=== PATIENT | male | born 1950 | race Caucasian/White ===

== ENCOUNTER 2016-11-23 20:29 | Inpatient (IN) | payer MEDICARE, OTHER ==
--- NOTE | 2016-11-23 21:52 | EDM.PDOC ---
ED HPI GENERAL MEDICAL PROBLEM - General Chief Complaint: General Stated Complaint: WEAKNESS Time Seen by Provider: 11/23/16 21:29 Source of Information: Reports: Patient History Limitations: Reports: No Limitations - History of Present Illness INITIAL COMMENTS - FREE TEXT/NARRATIVE: 66 years old male patient presented with chief complaint of generalized weakness , dizziness has been going on for almost one week. [facility] and [facility]. The patient was also prescribed trazodone for probable sleeping. Monday he had diarrhea and was not feeling well so he stopped using both Augmentin and trazodone. Monday he had 2 syncopal episode. He was walking to the bathroom and felt lightheaded and fainted twice. He hit his head. Complete loss of consciousness. He didn't seek any medical attention at that time. Denies any chest pain or shortness of breath at that time. No seizure activities. No focal weakness or numbness. Since then he has been progressively getting weaker and more dizzy. On Monday he had a moment of 8 and iron studies was ordered. Also fecal blood test. Results not back. He had a hemoglobin of 8 at that time. Patient was started on iron. Denies any chest pain or shortness breath. Denies any palpitation. No abdominal pain diarrhea or constipation. No urinary symptom. Denies any focal weakness or numbness anywhere. Denies any blood and urine or stool. No black stool. Denies any fever or chills. - Related Data Allergies Allergy/AdvReac Type Severity Reaction Status Date / Time hydrochlorothiazide Allergy Fluid Verified 11/23/16 21:52 Retention nifedipine [From Procardia] Allergy Swelling Verified 11/23/16 21:52 Home Meds: Home Meds Amoxicillin/Clavulanate K [Augmentin 875-125 MG] 1 tab PO Q12H 11/23/16 [History ] Atenolol 100 mg PO DAILY 11/23/16 [History] Chlorthalidone 50 mg PO DAILY 11/23/16 [History] Ferrous Gluconate 1 tab PO BID 11/23/16 [History] Gabapentin [Neurontin] 200 mg PO BEDTIME 11/23/16 [History] Lisinopril 40 mg PO DAILY 11/23/16 [History] atorvaSTATin [Lipitor] 40 mg PO DAILY 11/23/16 [History] traZODone 50 mg PO BEDTIME PRN 11/23/16 [History] Past Medical History HEENT History: Reports: Other (See Below) Other HEENT History: dental infection recent Cardiovascular History: Reports: High Cholesterol, Hypertension Gastrointestinal History: Reports: PUD Musculoskeletal History: Reports: Back Pain, Chronic, Osteoarthritis, Other ( See Below) Other Musculoskeletal History: degenerative disc disease. twitchy legs at night Other Psychiatric History: no been sleeping well for 1 wk Other Hematologic History: hgb 8.4 Social & Family History - Tobacco Use Smoking Status *Q: Current Every Day Smoker Years of Tobacco use: 50 Packs/Tins Daily: 1 - Recreational Drug Use Recreational Drug Use: Yes ED ROS GENERAL - Review of Systems Review Of Systems: ROS reveals no pertinent complaints other than HPI. ED EXAM, GENERAL - Physical Exam Exam: See Below Exam Limited By: No Limitations General Appearance: Alert, WD/WN, No Apparent Distress Nose: Normal Inspection, Normal Mucosa, No Blood Throat/Mouth: Normal Inspection, Normal Lips, Normal Teeth, Normal Gums, Normal Oropharynx, Normal Voice, No Airway Compromise Head: Atraumatic, Normocephalic Neck: Normal Inspection, Supple, Non-Tender, Full Range of Motion Respiratory/Chest: No Respiratory Distress, Lungs Clear, Normal Breath Sounds, No Accessory Muscle Use, Chest Non-Tender Cardiovascular: Normal Peripheral Pulses, Regular Rate, Rhythm, No Edema, No Gallop, No JVD, No Murmur, No Rub GI/Abdominal: Normal Bowel Sounds, Soft, Non-Tender, No Organomegaly, No Distention, No Abnormal Bruit, No Mass Extremities: Normal Inspection, Normal Range of Motion, Non-Tender, Normal Capillary Refill, No Pedal Edema Neurological: Alert, Oriented, CN II-XII Intact, Normal Cognition, Normal Gait, Normal Reflexes, No Motor/Sensory Deficits Skin Exam: Pallor. No: No Rash, Cyanosis, Erythema Course - Vital Signs Last Recorded V/S: Last Vital Signs Temp 36.2 C 11/24/16 07:28 Pulse 76 11/24/16 07:28 Resp 16 11/24/16 07:28 BP 114/56 L 11/24/16 07:28 Pulse Ox 96 11/24/16 07:28 - Orders/Labs/Meds Orders: Active Orders 24 hr Category Date Time Status Head wo Cont [CT] Urgent Exams 11/23/16 22:08 Taken PATIENT RETYPE [BBK] Stat Lab 11/23/16 22:40 Results RED BLOOD CELLS LP [BBK] Stat Lab 11/23/16 22:40 Results TYPE AND SCREEN [BBK] Stat Lab 11/23/16 22:40 Results Transfuse Red Blood Cells [COMM] Stat Oth 11/23/16 23:39 Ordered EKG 12 Lead [EK] Urgent Ther 11/23/16 22:08 Ordered Medication Orders Acetaminophen (Tylenol) 650 mg PO Q4H PRN PRN Reason: Pain (Mild 1-3)/fever Albuterol (Proventil Neb Soln) 2.5 mg NEB Q4H PRN PRN Reason: Shortness Of Breath/wheezing Gabapentin (Neurontin) 200 mg PO BEDTIME DONAL Sodium Chloride (Normal Saline) 1,000 mls @ 125 mls/hr IV ASDIRECTED DONAL Pantoprazole Sodium 80 mg/ (Sodium Chloride) 100 mls @ 10 mls/hr IV .Q10H DONAL Lorazepam (Ativan) 0.5 - 1 mg IVPUSH Q4H PRN PRN Reason: Nausea/Vomiting Morphine Sulfate (Morphine) 2 - 4 mg IVPUSH Q2H PRN PRN Reason: Pain (severe 7-10) Ondansetron HCl (Zofran Odt) 4 mg PO Q6H PRN PRN Reason: Nausea able to take PO Ondansetron HCl (Zofran) 4 mg IV Q6H PRN PRN Reason: Nausea/Vomiting Trazodone HCl (Trazodone) 50 mg PO BEDTIME PRN PRN Reason: Insomnia Last Admin: 11/24/16 02:19 Dose: 50 mg Labs: Laboratory Tests 11/23/16 11/23/16 11/23/16 Range/Units 00:01 00:01 22:28 WBC 17.6 H (4.5-11.0) K/uL RBC 1.56 L (4.30-5.90) M/uL Hgb 5.0 L* (12.0-15.0) g/dL Hct 15.0 L (40.0-54.0) % MCV 96 (80-98) fL MCH 32 H (27-31) pg MCHC 33 (32-36) % Plt Count 486 H (150-400) K/uL Neut % (Auto) 55 (36-66) % Lymph % (Auto) 31 (24-44) % Dyer % (Auto) 9 H (2-6) % Eos % (Auto) 5 H (2-4) % Baso % (Auto) 1 (0-1) % PT (9.5-12.0) sec INR (0.80-1.20) Sodium (140-148) mmol/L Potassium (3.6-5.2) mmol/L Chloride (100-108) mmol/L Carbon Dioxide (21-32) mmol/L Anion Gap (5.0-14.0) mmol/L BUN (7-18) mg/dL Creatinine (0.8-1.3) mg/dL Est Cr Clr Drug Dosing mL/min Estimated GFR (MDRD) (>60) Glucose (74-106) mg/dL Lactic Acid (0.4-2.0) mmol/L Calcium (8.5-10.1) mg/dL Phosphorus (2.5-4.9) mg/dL Magnesium (1.8-2.4) mg/dL Iron 123 (65-175) ug/dL TIBC 459 H (250-450) ug/dl % Saturation 27 (20-55) % Ferritin 21 (8-388) ng/ml Total Bilirubin (0.2-1.0) mg/dL AST (15-37) U/L ALT (12-78) U/L Alkaline Phosphatase (46-116) U/L Ammonia (11-32) mmol/L Lactate Dehydrogenase 75 L (85-227) U/L Troponin I (0.000-0.056) ng/mL Total Protein (6.4-8.2) g/dL Albumin (3.4-5.0) g/dL Globulin (2.3-3.5) g/dL Albumin/Globulin Ratio (1.2-2.2) Lipase (73-393) U/L TSH, Ultra Sensitive (0.358-3.740) uIU/mL Blood Type Gel Antibody Screen Crossmatch 11/23/16 11/23/16 11/23/16 Range/Units 22:28 22:28 22:28 WBC (4.5-11.0) K/uL RBC (4.30-5.90) M/uL Hgb (12.0-15.0) g/dL Hct (40.0-54.0) % MCV (80-98) fL MCH (27-31) pg MCHC (32-36) % Plt Count (150-400) K/uL Neut % (Auto) (36-66) % Lymph % (Auto) (24-44) % Dyer % (Auto) (2-6) % Eos % (Auto) (2-4) % Baso % (Auto) (0-1) % PT 9.9 (9.5-12.0) sec INR 0.93 (0.80-1.20) Sodium 134 L (140-148) mmol/L Potassium 3.5 L (3.6-5.2) mmol/L Chloride 96 L (100-108) mmol/L Carbon Dioxide 28 (21-32) mmol/L Anion Gap 13.5 (5.0-14.0) mmol/L BUN 44 H (7-18) mg/dL Creatinine 0.9 (0.8-1.3) mg/dL Est Cr Clr Drug Dosing 68.77 mL/min Estimated GFR (MDRD) > 60 (>60) Glucose 115 H (74-106) mg/dL Lactic Acid (0.4-2.0) mmol/L Calcium 8.5 (8.5-10.1) mg/dL Phosphorus 3.9 (2.5-4.9) mg/dL Magnesium 1.8 (1.8-2.4) mg/dL Iron (65-175) ug/dL TIBC (250-450) ug/dl % Saturation (20-55) % Ferritin (8-388) ng/ml Total Bilirubin 0.2 (0.2-1.0) mg/dL AST 32 (15-37) U/L ALT 41 (12-78) U/L Alkaline Phosphatase 44 L (46-116) U/L Ammonia 16 (11-32) mmol/L Lactate Dehydrogenase (85-227) U/L Troponin I < 0.017 (0.000-0.056) ng/mL Total Protein 6.3 L (6.4-8.2) g/dL Albumin 2.9 L (3.4-5.0) g/dL Globulin 3.4 (2.3-3.5) g/dL Albumin/Globulin Ratio 0.9 L (1.2-2.2) Lipase 207 (73-393) U/L TSH, Ultra Sensitive 4.525 H (0.358-3.740) uIU/mL Blood Type Gel Antibody Screen Crossmatch 11/23/16 11/23/16 Range/Units 22:28 22:40 WBC (4.5-11.0) K/uL RBC (4.30-5.90) M/uL Hgb (12.0-15.0) g/dL Hct (40.0-54.0) % MCV (80-98) fL MCH (27-31) pg MCHC (32-36) % Plt Count (150-400) K/uL Neut % (Auto) (36-66) % Lymph % (Auto) (24-44) % Dyer % (Auto) (2-6) % Eos % (Auto) (2-4) % Baso % (Auto) (0-1) % PT (9.5-12.0) sec INR (0.80-1.20) Sodium (140-148) mmol/L Potassium (3.6-5.2) mmol/L Chloride (100-108) mmol/L Carbon Dioxide (21-32) mmol/L Anion Gap (5.0-14.0) mmol/L BUN (7-18) mg/dL Creatinine (0.8-1.3) mg/dL Est Cr Clr Drug Dosing mL/min Estimated GFR (MDRD) (>60) Glucose (74-106) mg/dL Lactic Acid 1.3 (0.4-2.0) mmol/L Calcium (8.5-10.1) mg/dL Phosphorus (2.5-4.9) mg/dL Magnesium (1.8-2.4) mg/dL Iron (65-175) ug/dL TIBC (250-450) ug/dl % Saturation (20-55) % Ferritin (8-388) ng/ml Total Bilirubin (0.2-1.0) mg/dL AST (15-37) U/L ALT (12-78) U/L Alkaline Phosphatase (46-116) U/L Ammonia (11-32) mmol/L Lactate Dehydrogenase (85-227) U/L Troponin I (0.000-0.056) ng/mL Total Protein (6.4-8.2) g/dL Albumin (3.4-5.0) g/dL Globulin (2.3-3.5) g/dL Albumin/Globulin Ratio (1.2-2.2) Lipase (73-393) U/L TSH, Ultra Sensitive (0.358-3.740) uIU/mL Blood Type A POSITIVE Gel Antibody Screen Negative Crossmatch See Detail Meds: Medications Generic Name Dose Route Start Last Admin Trade Name Freq PRN Reason Stop Dose Admin Acetaminophen 650 mg 11/24/16 01:04 Tylenol PO Q4H PRN Pain (Mild 1-3)/fever Albuterol 2.5 mg 11/24/16 01:04 Proventil Neb Soln NEB Q4H PRN Shortness Of Breath/wheezing Gabapentin 200 mg 11/24/16 21:00 Neurontin PO BEDTIME DONAL Sodium Chloride 1,000 mls @ 125 mls/hr 11/24/16 01:04 Normal Saline IV ASDIRECTED DONAL Pantoprazole Sodium 80 mg/ 100 mls @ 10 mls/hr 11/24/16 08:30 Sodium Chloride IV .Q10H DONAL Lorazepam 0.5 - 1 mg 11/24/16 01:04 Ativan IVPUSH Q4H PRN Nausea/Vomiting Morphine Sulfate 2 - 4 mg 11/24/16 01:04 Morphine IVPUSH Q2H PRN Pain (severe 7-10) Ondansetron HCl 4 mg 11/24/16 01:04 Zofran Odt PO Q6H PRN Nausea able to take PO Ondansetron HCl 4 mg 11/24/16 01:04 Zofran IV Q6H PRN Nausea/Vomiting Trazodone HCl 50 mg 11/24/16 01:04 11/24/16 02:19 Trazodone PO 50 mg BEDTIME PRN Administration Insomnia Discontinued Medications Generic Name Dose Route Start Last Admin Trade Name Freq PRN Reason Stop Dose Admin Sodium Chloride 1,000 mls @ 125 mls/hr 11/23/16 22:15 11/23/16 22:26 Normal Saline IV 125 mls/hr ASDIRECTED DONAL Administration Pantoprazole Sodium 80 mg/ 100 mls @ 10 mls/hr 11/24/16 01:04 11/24/16 05:32 Sodium Chloride IV Not Given .Q10H DONAL Pantoprazole Sodium 80 mg/ 80 mls @ 10 mls/hr 11/24/16 01:30 11/24/16 04:04 Sodium Chloride IV 10 mls/hr Q8H DONAL Administration Pantoprazole Sodium 40 mg 11/24/16 01:04 11/24/16 02:19 Protonix Iv IVPUSH 11/24/16 01:05 40 mg ONETIME ONE Administration Pantoprazole Sodium Confirm 11/24/16 03:49 11/24/16 04:03 Protonix Iv Administered 11/24/16 03:50 Not Given Dose 80 mg .ROUTE .[facility] ONE - Re-Assessments/Exams Free Text/Narrative Re-Assessment/Exam: 11/24/16 07:33 Patient was seen and examined shortly after arrival. On monitoring analyst. EKG shows no sign of acute ischemia or arrhythmia. CT head shows no acute finding. Lab and imaging reviewed with the patient. Hemoglobin open came back 5. Patient was typed and crossmatched for 2 units of blood. Started the first unit here in the ER. Patient initially denies any black tarry stool and when he was asked again he suggests sometime. So most likely he have some sort of upper GI bleed. Case was discussed with Dr. Escalante hospitalist bacon stringer and he accepts the admission for further management. Patient agrees with the plan. Stable for admission. Departure - Departure Time of Disposition: 01:00 Disposition: Refer to Observation Condition: Good Clinical Impression: GI bleeding, Acute blood loss anemia, Acute upper gastrointestinal hemorrhage - Discharge Information - My Orders Last 24 Hours: My Active Orders 11/23/16 22:08 Head wo Cont [CT] Urgent EKG 12 Lead [EK] Urgent 11/23/16 22:40 PATIENT RETYPE [BBK] Stat RED BLOOD CELLS LP [BBK] Stat TYPE AND SCREEN [BBK] Stat 11/23/16 23:39 Transfuse Red Blood Cells [COMM] Stat - Assessment/Plan Last 24 Hours: My Active Orders 11/23/16 22:08 Head wo Cont [CT] Urgent EKG 12 Lead [EK] Urgent 11/23/16 22:40 PATIENT RETYPE [BBK] Stat RED BLOOD CELLS LP [BBK] Stat TYPE AND SCREEN [BBK] Stat 11/23/16 23:39 Transfuse Red Blood Cells [COMM] Stat Plan: The patient was typed and crossmatched . Started on blood transfusion. Patient will be admitted to Dr. Escalante hospitalist bacon stringer for further management.
[2016-11-23] MEDS ORDERED: Sodium Chloride 0.9% 1,000 ML IV SCH (22:15)
--- NOTE | 2016-11-24 00:35 | PCM.HP ---
H&P History of Present Illness - General Date of Service: 11/24/16 Admit Problem/Dx: Admission Diagnosis/Problem Admission Diagnosis/Problem Acute gastrointestinal hemorrhage Source of Information: Patient, Family, Provider History Limitations: Reports: No Limitations - History of Present Illness Initial Comments - Free Text/Narative: Joey presents to the emergency room today with weakness and fatigue. He reports 2 days of fairly impressive diarrhea with dark stool towards the end of last week, about 5 days. Over the weekend he had 2 episodes of syncope and one episode resulted him striking his head on the floor. He has had some mild residual dizziness and lightheadedness. No ongoing difficulty with abdominal pain or diarrhea like he experienced approximately 5 days ago. He has been more tired than usual and short of breath, especially with exertion. He's had some mild burning epigastric and lower chest discomfort over the past few days. Pain seems to be worse in the evening after he takes this restless leg medication. He hasn't taken anything to make it feel better. He has maintained liquids fairly well but hasn't had much food over the past couple of days. He does report some ongoing loose stools which appear to be black but he blames this on drinking coffee. Mild nausea but no vomiting. He has not had any sick contacts. He has not traveled. No fevers or chills. Workup in the emergency room revealed a hemoglobin of 5 and an elevated white blood cell count at 17,000. He is receiving his first unit of blood here and will be admitted to the intensive care unit for further management of a presumed upper gastrointestinal tract hemorrhage. - Related Data Allergies/Adverse Reactions: Allergies Allergy/AdvReac Type Severity Reaction Status Date / Time hydrochlorothiazide Allergy Fluid Verified 11/23/16 21:52 Retention nifedipine [From Procardia] Allergy Swelling Verified 11/23/16 21:52 Home Medications: Home Meds Amoxicillin/Clavulanate K [Augmentin 875-125 MG] 1 tab PO Q12H 11/23/16 [History ] Atenolol 100 mg PO DAILY 11/23/16 [History] Chlorthalidone 50 mg PO DAILY 11/23/16 [History] Ferrous Gluconate 1 tab PO BID 11/23/16 [History] Gabapentin [Neurontin] 200 mg PO BEDTIME 11/23/16 [History] Lisinopril 40 mg PO DAILY 11/23/16 [History] atorvaSTATin [Lipitor] 40 mg PO DAILY 11/23/16 [History] traZODone 50 mg PO BEDTIME PRN 11/23/16 [History] Past Medical History HEENT History: Reports: Other (See Below) Other HEENT History: dental infection recent Cardiovascular History: Reports: High Cholesterol, Hypertension Gastrointestinal History: Reports: PUD Musculoskeletal History: Reports: Back Pain, Chronic, Osteoarthritis, Other ( See Below) Other Musculoskeletal History: degenerative disc disease. twitchy legs at night Other Psychiatric History: no been sleeping well for 1 wk Other Hematologic History: hgb 8.4 Social & Family History - Family History Cardiac: Denies: CAD - Tobacco Use Smoking Status *Q: Current Every Day Smoker Years of Tobacco use: 50 Packs/Tins Daily: 1 - Caffeine Use Caffeine Use: Reports: Coffee - Alcohol Use Alcohol Use History: No - Recreational Drug Use Recreational Drug Use: Yes H&P Review of Systems - Review of Systems: Review Of Systems: See Below Free Text/Narrative: A complete 12 point review of systems was obtained. Pertinent positives and negatives are noted in the history of present illness. All other systems were reviewed and were negative except as noted. Exam - Exam Exam: See Below - Vital Signs Vital Signs: Last Vital Signs Temp 35.5 C 11/24/16 00:03 Pulse 73 11/24/16 00:03 Resp 16 11/24/16 00:03 BP 105/59 L 11/24/16 00:03 Pulse Ox 100 11/24/16 00:03 Weight: 59.421 kg - Exam Quality Assessment: No: Supplemental Oxygen General: Alert, Oriented, Cooperative. No: Mild Distress HEENT: Conjunctiva Clear. No: Mucosa Moist & [place] (dry), Scleral Icterus Neck: Supple, Trachea Midline. No: Lymphadenopathy Lungs: Clear to Auscultation, Normal Respiratory Effort Cardiovascular: Regular Rate, Regular Rhythm. No: Systolic Murmur GI/Abdominal Exam: Normal Bowel Sounds, Soft, Non-Tender, No Distention, No Mass Back Exam: Normal Inspection, Muscle Spasm Extremities: No Pedal Edema. No: Increased Warmth Peripheral Pulses: 2+: Dorsalis Pedis (L), Dorsalis Pedis (R) Skin: Warm, Dry, Intact Neuro Extensive - Mental Status: Alert, Oriented x3, Nl Response to Commands Neuro Extensive - Motor, Sensory, Reflexes: CN II-XII Intact. No: Dysarthria, Abnormal Motor, Tremor Psychiatric: Alert, Normal Affect - Patient Data Lab Results Last 24 hrs: Laboratory Results - last 24 hr 11/23/16 11/23/16 11/23/16 Range/Units 00:01 00:01 22:28 WBC 17.6 H (4.5-11.0) K/uL RBC 1.56 L (4.30-5.90) M/uL Hgb 5.0 L* (12.0-15.0) g/dL Hct 15.0 L (40.0-54.0) % MCV 96 (80-98) fL MCH 32 H (27-31) pg MCHC 33 (32-36) % Plt Count 486 H (150-400) K/uL Neut % (Auto) 55 (36-66) % Lymph % (Auto) 31 (24-44) % Wilkes % (Auto) 9 H (2-6) % Eos % (Auto) 5 H (2-4) % Baso % (Auto) 1 (0-1) % PT (9.5-12.0) sec INR (0.80-1.20) Sodium (140-148) mmol/L Potassium (3.6-5.2) mmol/L Chloride (100-108) mmol/L Carbon Dioxide (21-32) mmol/L Anion Gap (5.0-14.0) mmol/L BUN (7-18) mg/dL Creatinine (0.8-1.3) mg/dL Est Cr Clr Drug Dosing mL/min Estimated GFR (MDRD) (>60) Glucose (74-106) mg/dL Lactic Acid (0.4-2.0) mmol/L Calcium (8.5-10.1) mg/dL Phosphorus (2.5-4.9) mg/dL Magnesium (1.8-2.4) mg/dL Iron 123 (65-175) ug/dL TIBC 459 H (250-450) ug/dl % Saturation 27 (20-55) % Ferritin 21 (8-388) ng/ml Total Bilirubin (0.2-1.0) mg/dL AST (15-37) U/L ALT (12-78) U/L Alkaline Phosphatase (46-116) U/L Ammonia (11-32) mmol/L Lactate Dehydrogenase 75 L (85-227) U/L Troponin I (0.000-0.056) ng/mL Total Protein (6.4-8.2) g/dL Albumin (3.4-5.0) g/dL Globulin (2.3-3.5) g/dL Albumin/Globulin Ratio (1.2-2.2) Lipase (73-393) U/L TSH, Ultra Sensitive (0.358-3.740) uIU/mL Blood Type Gel Antibody Screen Crossmatch 11/23/16 11/23/16 11/23/16 Range/Units 22:28 22:28 22:28 WBC (4.5-11.0) K/uL RBC (4.30-5.90) M/uL Hgb (12.0-15.0) g/dL Hct (40.0-54.0) % MCV (80-98) fL MCH (27-31) pg MCHC (32-36) % Plt Count (150-400) K/uL Neut % (Auto) (36-66) % Lymph % (Auto) (24-44) % Wilkes % (Auto) (2-6) % Eos % (Auto) (2-4) % Baso % (Auto) (0-1) % PT 9.9 (9.5-12.0) sec INR 0.93 (0.80-1.20) Sodium 134 L (140-148) mmol/L Potassium 3.5 L (3.6-5.2) mmol/L Chloride 96 L (100-108) mmol/L Carbon Dioxide 28 (21-32) mmol/L Anion Gap 13.5 (5.0-14.0) mmol/L BUN 44 H (7-18) mg/dL Creatinine 0.9 (0.8-1.3) mg/dL Est Cr Clr Drug Dosing 68.77 mL/min Estimated GFR (MDRD) > 60 (>60) Glucose 115 H (74-106) mg/dL Lactic Acid (0.4-2.0) mmol/L Calcium 8.5 (8.5-10.1) mg/dL Phosphorus 3.9 (2.5-4.9) mg/dL Magnesium 1.8 (1.8-2.4) mg/dL Iron (65-175) ug/dL TIBC (250-450) ug/dl % Saturation (20-55) % Ferritin (8-388) ng/ml Total Bilirubin 0.2 (0.2-1.0) mg/dL AST 32 (15-37) U/L ALT 41 (12-78) U/L Alkaline Phosphatase 44 L (46-116) U/L Ammonia 16 (11-32) mmol/L Lactate Dehydrogenase (85-227) U/L Troponin I < 0.017 (0.000-0.056) ng/mL Total Protein 6.3 L (6.4-8.2) g/dL Albumin 2.9 L (3.4-5.0) g/dL Globulin 3.4 (2.3-3.5) g/dL Albumin/Globulin Ratio 0.9 L (1.2-2.2) Lipase 207 (73-393) U/L TSH, Ultra Sensitive 4.525 H (0.358-3.740) uIU/mL Blood Type Gel Antibody Screen Crossmatch 11/23/16 11/23/16 Range/Units 22:28 22:40 WBC (4.5-11.0) K/uL RBC (4.30-5.90) M/uL Hgb (12.0-15.0) g/dL Hct (40.0-54.0) % MCV (80-98) fL MCH (27-31) pg MCHC (32-36) % Plt Count (150-400) K/uL Neut % (Auto) (36-66) % Lymph % (Auto) (24-44) % Wilkes % (Auto) (2-6) % Eos % (Auto) (2-4) % Baso % (Auto) (0-1) % PT (9.5-12.0) sec INR (0.80-1.20) Sodium (140-148) mmol/L Potassium (3.6-5.2) mmol/L Chloride (100-108) mmol/L Carbon Dioxide (21-32) mmol/L Anion Gap (5.0-14.0) mmol/L BUN (7-18) mg/dL Creatinine (0.8-1.3) mg/dL Est Cr Clr Drug Dosing mL/min Estimated GFR (MDRD) (>60) Glucose (74-106) mg/dL Lactic Acid 1.3 (0.4-2.0) mmol/L Calcium (8.5-10.1) mg/dL Phosphorus (2.5-4.9) mg/dL Magnesium (1.8-2.4) mg/dL Iron (65-175) ug/dL TIBC (250-450) ug/dl % Saturation (20-55) % Ferritin (8-388) ng/ml Total Bilirubin (0.2-1.0) mg/dL AST (15-37) U/L ALT (12-78) U/L Alkaline Phosphatase (46-116) U/L Ammonia (11-32) mmol/L Lactate Dehydrogenase (85-227) U/L Troponin I (0.000-0.056) ng/mL Total Protein (6.4-8.2) g/dL Albumin (3.4-5.0) g/dL Globulin (2.3-3.5) g/dL Albumin/Globulin Ratio (1.2-2.2) Lipase (73-393) U/L TSH, Ultra Sensitive (0.358-3.740) uIU/mL Blood Type A POSITIVE Gel Antibody Screen Negative Crossmatch See Detail Result Diagrams: 11/23/16 22:28 11/23/16 22:28 Imaging Impressions Last 24 hrs: Head CT - images personally reviewed - no evidence for acute pathology such as hemorrhage stroke or mass *Q Meaningful Use (ADM) - VTE *Q VTE Criteria *Q: VTE Pharmacological Contraindications *Q: Active Hemorrhage - VTE Risk Assess *Q Each Risk Factor Represents 1 Point: Abnormal Pulmonary Function (COPD) Total Score 1 Point Risk Factors: 1 Each Risk Factor Represents 2 Points: Age 60 - 74 Years Total Score 2 Point Risk Factors: 2 Each Risk Factor Represents 3 Points: None Total Score 3 Point Risk Factors: 0 Each Risk Factor Represents 5 Points: None Total Score 5 Point Risk Factors: 0 Venous Thromboembolism Risk Factor Score *Q: 3 - Stroke *Q Stroke Criteria *Q: - AMI *Q AMI Criteria *Q: - Problem List (1) Acute upper gastrointestinal hemorrhage SNOMED Code(s): 53249034 ICD Code: K92.2 - GASTROINTESTINAL HEMORRHAGE, UNSPECIFIED Status: Acute Current Visit: Yes (2) Acute blood loss anemia SNOMED Code(s): 709933435 ICD Code: D62 - ACUTE POSTHEMORRHAGIC ANEMIA Status: Acute Current Visit : Yes (3) Tobacco dependence SNOMED Code(s): 19628117 ICD Code: F17.200 - NICOTINE DEPENDENCE, UNSPECIFIED, UNCOMPLICATED Status : Chronic Current Visit: Yes (4) Essential hypertension SNOMED Code(s): 62700507 ICD Code: I10 - ESSENTIAL (PRIMARY) HYPERTENSION Status: Chronic Current Visit: Yes Problem List Initiated/Reviewed/Updated: Yes Orders Last 24hrs: Active Orders 24 hr Category Date Time Status Patient Status Manage Transfer [TRANSFER] Routine ADT 11/24/16 00:21 Ordered EKG Documentation Completion [RC] ASDIRECTED Care 11/23/16 22:11 Active Head wo Cont [CT] Urgent Exams 11/23/16 22:08 Taken PATIENT RETYPE [BBK] Stat Lab 11/23/16 22:40 Results RED BLOOD CELLS LP [BBK] Stat Lab 11/23/16 22:40 Results TYPE AND SCREEN [BBK] Stat Lab 11/23/16 22:40 Results Sodium Chloride 0.9% [Normal Saline] 1,000 ml Med 11/23/16 22:15 Active IV ASDIRECTED Transfuse Red Blood Cells [COMM] Stat Oth 11/23/16 23:39 Ordered Resuscitation Status Routine Resus Stat 11/24/16 00:22 Ordered EKG 12 Lead [EK] Urgent Ther 11/23/16 22:08 Ordered Medication Orders Sodium Chloride (Normal Saline) 1,000 mls @ 125 mls/hr IV ASDIRECTED DONAL Last Admin: 11/23/16 22:26 Dose: 125 mls/hr Assessment/Plan Comment:: Assessment and plan - Acute upper gastrointestinal hemorrhage - most likely source of bleeding with some heartburn symptoms and history of bleeding ulcers. He has borderline hypotensive but not tachycardic. Risk factors for ulcer include caffeine use, cigarette smoking. He is receiving his first unit of blood in the emergency room. Hemoglobin was 5 on presentation today and 8 five days ago. -Admit to the intensive care unit -Cardiac monitoring -IV fluids -Transfuse second and third unit of blood -Pantoprazole bolus and infusion overnight -Repeat hemoglobin in the morning after transfusion -Surgical consult in the morning for EGD Acute blood loss anemia - secondary to hemorrhage as above. Hemoglobin 5 at presentation. -Management as above. Essential hypertension - blood pressure on the low side and usual medications will be held. Tobacco dependence - encourage cessation Maintenance issues - - DVT prophylaxis - mechanical with active hemorrhage - GI prophylaxis - IV PPI - Nutrition - nothing by mouth - Parish catheter - not indicated CODE STATUS - full code Admission justification - This patient will be admitted for inpatient services and is medically appropriate meeting medical necessity for inpatient admission as outlined in my documentation. I reasonably expect the patient will require inpatient services that span a period time over 2 midnights. I reasonably expect this patient to be discharged or transferred within 96 hours [facility] Disposition - anticipate discharge to home after the hospital stay Primary care physician - [place] [facility] Hamilton Escalante M.D.
[2016-11-24] MEDS ORDERED: Acetaminophen 325 MG Tab PO PRN (01:04)
[2016-11-24] MEDS ORDERED: Sodium Chloride 0.9% 100 ML with Pantoprazole 80 MG IV SCH ×2 (01:04)
[2016-11-24] MEDS ORDERED: Ondansetron 4 MG Tab.DIS PO PRN (01:04)
[2016-11-24] MEDS ORDERED: Albuterol 0.083% 2.5 MG/3 ML Neb Soln NEB PRN (01:04)
[2016-11-24] MEDS ORDERED: Pantoprazole 40 MG Vial IVPUSH ONE (01:04)
[2016-11-24] MEDS ORDERED: Morphine 2 MG/ML Syringe IVPUSH PRN (01:04)
[2016-11-24] MEDS ORDERED: LORazepam 2 MG/ML MDV IVPUSH PRN (01:04)
[2016-11-24] MEDS ORDERED: Sodium Chloride 0.9% 1,000 ML IV SCH (01:04)
[2016-11-24] MEDS ORDERED: Ondansetron 4 MG/2 ML SDV IV PRN (01:04)
[2016-11-24] MEDS: traZODone 50 MG Tab PO PRN ×2 (02:19→20:40)
[2016-11-24] MEDS ORDERED: Pantoprazole 40 MG Vial ONE (03:49)
[2016-11-24] MEDS: Sodium Chloride 0.9% 100 ML with Pantoprazole 80 MG IV SCH ×4 (08:36→18:03)
[2016-11-24] MEDS ORDERED: Glycopyrrolate 0.2 MG/ML 2 ML SDV IVPUSH ONE (09:00)
[2016-11-24] MEDS ORDERED: fentaNYL 100 MCG/2 ML SDV ONE (10:10)
[2016-11-24] MEDS ORDERED: Propofol 200 MG/20 ML SDV ONE (10:10)
--- NOTE | 2016-11-24 10:36 | CONS ---
DATE OF SERVICE: 11/24/2016 REFERRING PHYSICIAN: CONSULTING PHYSICIAN: Regina Cabrera PA-C HISTORY OF PRESENT ILLNESS: Joey Stock is a 66-year-old male, who Hamilton Escalante M.D. asked the Surgery Department to seen in consultation. He was admitted on 11/24/2016 for an acute GI bleed. Joey states that he went to the emergency room with a 2-day history of weakness, fatigue, dizziness, and had 2 episodes where he had passed out, on one episode he did hit his head on the floor. He states he is still feeling dizzy and lightheaded. He did have a history of 5 days of black stools, which he associated with drinking coffee and grape Gatorade. With review of history, he states that he has burning in the midepigastric area and some associated chest pain which radiates from the midepigastric area up into his chest, some nausea, but no other associated signs and symptoms. Hemoglobin was checked in the ER and it was 5, elevated white count was 17,000. REVIEW OF SYSTEMS: CONSTITUTIONAL: Denies any fever, chills, or night sweats. Weight, he says goes up and down, but that is pretty stable for him. HEENT: Negative with the exception of poor teeth; states he recently had an infection. HEART: No fast irregular heart beat. LUNGS: No shortness of breath. States he does have a smoker's cough, but that has not changed. : Negative for any UTI or prostate signs and symptoms. MUSCULOSKELETAL: Chronic back pain. He does have osteoarthritis and degenerative disk disease. NEUROLOGIC: Reports slight headache since he has fallen. Reports at night he is unable to keep his legs still without moving, he said they twitch almost all night long. PSYCHIATRIC: Reports insomnia over the past week. Otherwise, denies any depression or anxiety. Remainder of review of systems negative for any pertinent positives and negatives. ALLERGIES: TO HYDROCHLOROTHIAZIDE AND PROCARDIA. CURRENT MEDICATIONS: Include Augmentin 875 mg 1 tablet p.o. for infection in his teeth, atenolol 100 mg p.o. daily, chlorthalidone 50 mg p.o. daily, ferrous gluconate 1 tablet p.o. b.i.d., gabapentin 200 mg p.o. at bedtime, lisinopril 40 mg p.o. daily, Lipitor 40 mg p.o. daily, and trazodone 50 mg p.o. at bedtime p.r.n. for sleep. PRIMARY CARE PROVIDERS: At the [facility]. PAST MEDICAL HISTORY: Hypercholesterolemia, hypertension, pyloric ulcer disease, chronic back pain, osteoarthritis, and degenerative disk disease. FAMILY HISTORY: Denies any heart disease, lung disease, colon or prostate cancer. SOCIAL HISTORY: . Retired. Smoking history: Smokes 1/2 pack of cigarettes daily for 50 years. Caffeine: Reports 1 to 1-1/2 cups of coffee a day. Alcohol use: States varies, but on average 6 beers daily and more if there is a football game on. PHYSICAL EXAMINATION: GENERAL: Joey Stock is a 66-year-old male. He is resting comfortably in bed. VITAL SIGNS: TPR is 97.2, 76, 16. Blood pressure 114/56. HEENT: Negative. Teeth in poor condition. NECK: Supple. Negative for lymphadenopathy. HEART: Regular rate and rhythm. LUNGS: Clear. ABDOMEN: Midepigastric tenderness is noted. : Deferred. EXTREMITIES: Deep tendon reflexes are 2+ bilaterally. He moves all extremities without difficulty. SKIN: Without rash. PSYCHIATRIC: Mood and affect and memory intact. ASSESSMENT: 1. Acute upper gastrointestinal bleed. 2. Acute blood loss anemia. 3. Tobacco dependence. 4. Essential hypertension. 5. Hypercholesterolemia. 6. Nicotine addiction. 7. Alcohol daily use. 8. Osteoarthritis. 9. Degenerative disk disease. PLAN: Schedule and have consent signed for EGD with biopsies. IV sedation. Case to follow 11/24/2016. Remain n.p.o. Rodolfo Gale M.D., surgeon. Rx Robinul 0.4 mg IV on-call to OR. Regina Cabrera PA-C /[id number]
[2016-11-24] MEDS ORDERED: Dextrose 5%-Lactated Ringers 1,000 ML IV SCH ×2 (12:30→17:00)
[2016-11-24] MEDS ORDERED: Iopamidol 612 MG/ML 100 ML Bottle IV PRN (13:15)
[2016-11-24] MEDS ORDERED: Sodium Chloride 0.9% 100 ML IV SCH (13:15)
--- NOTE | 2016-11-24 15:38 | CT ---
Abdomen Pelvis w Cont INDICATION: weight loss, epigastric pain TECHNIQUE: CT images of the abdomen and pelvis performed. Coronal reformatted images obtained. IV contrast only. DLP: 470 mGycm COMPARISON: None FINDINGS: Mild linear scarring at the lung bases. Liver, gallbladder, pancreas, and adrenal glands unremarkable. Small spleen. Multiple prominent air-filled loops of small bowel scattered throughout the abdomen. No definite transition point. Appendix not seen with certainty but no secondary CT signs of acute appendicitis. Mild perinephric induration. This may be due to old inflammatory process thou gh correlate clinically for any acute. 17 mm mass arising from the upper pole of the left kidney post eriorly measures 66 Hounsfield units. This may represent a hyperdense cyst though solid mass includin g neoplasm not excluded. Kidneys otherwise unremarkable. No calculi or hydronephrosis. The ureters ar e clear. Urinary bladder shows no evidence of stones or wall thickening. Prostate mildly enlarged. Ab dominal aorta normal caliber. Degenerative disc disease and hypertrophic change in the lumbar spine. IMPRESSION: 1. Multiple prominent air-filled loops of small bowel. Findings may be due to ileus. If symptoms pers ist recommend follow-up exam to exclude small bowel obstruction. 2. Perinephric induration. This may be acute or chronic. Clinical correlation would be helpful. 3. 17 mm mass upper pole left kidney likely hyperdense cyst. Comparison with any prior imaging studie s of be helpful. If none, recommend follow-up left renal ultrasound in 6 months. 4. Other incidental findings, as above.
--- NOTE | 2016-11-24 16:53 | PCM.PN ---
- General Info Date of Service: 11/24/16 Functional Status: Reports: Pain Controlled - Review of Systems General: Reports: Weakness Cardiovascular: Denies: Chest Pain Gastrointestinal: Denies: Melena - Patient Data Vitals - Most Recent: Last Vital Signs Temp 36.4 C 11/24/16 12:08 Pulse 71 11/24/16 16:00 Resp 16 11/24/16 16:00 BP 123/66 11/24/16 16:00 Pulse Ox 96 11/24/16 16:00 Weight - Most Recent: 60.328 kg I&O - Last 24 Hours: Intake & Output 11/24/16 11/24/16 11/24/16 06:59 14:59 22:59 Intake Total 1224 115 Output Total 900 500 Balance 324 -385 Lab Results Last 24 Hours: Laboratory Results - last 24 hr 11/24/16 11/24/16 11/24/16 Range/Units 04:40 09:40 09:40 WBC 13.2 H (4.5-11.0) K/uL RBC 2.71 L (4.30-5.90) M/uL Hgb 8.3 L D (12.0-15.0) g/dL Hct 24.5 L (40.0-54.0) % MCV 90 (80-98) fL MCH 31 (27-31) pg MCHC 34 (32-36) % Plt Count 351 (150-400) K/uL Sodium 138 L (140-148) mmol/L Potassium 3.7 (3.6-5.2) mmol/L Chloride 103 (100-108) mmol/L Carbon Dioxide 27 (21-32) mmol/L Anion Gap 11.7 (5.0-14.0) mmol/L BUN 34 H (7-18) mg/dL Creatinine 0.9 (0.8-1.3) mg/dL Est Cr Clr Drug Dosing 69.82 mL/min Estimated GFR (MDRD) > 60 (>60) Glucose 109 H (74-106) mg/dL Calcium 8.1 L (8.5-10.1) mg/dL Tx Rx Implicated Unit 1 [id number] Unit 1 Component Lprbc Urine Blood Negative Reaction Clerical Check Acceptable Pre-Trans Blood Type A positive Pre-Trans Vis Hemolysis Negative Pre-Trans Icterus Negative Pre-Trans EVANGELINA IgG Negative Post-Trans Blood Type A positive Post-Tx Visible Hemolys Negative Post-Trans Icterus Negative Post-Trans EVANGELINA IgG Negative 11/24/16 Range/Units 16:40 WBC (4.5-11.0) K/uL RBC (4.30-5.90) M/uL Hgb 8.4 L (12.0-15.0) g/dL Hct (40.0-54.0) % MCV (80-98) fL MCH (27-31) pg MCHC (32-36) % Plt Count (150-400) K/uL Sodium (140-148) mmol/L Potassium (3.6-5.2) mmol/L Chloride (100-108) mmol/L Carbon Dioxide (21-32) mmol/L Anion Gap (5.0-14.0) mmol/L BUN (7-18) mg/dL Creatinine (0.8-1.3) mg/dL Est Cr Clr Drug Dosing mL/min Estimated GFR (MDRD) (>60) Glucose (74-106) mg/dL Calcium (8.5-10.1) mg/dL Tx Rx Implicated Unit 1 Unit 1 Component Urine Blood Reaction Clerical Check Pre-Trans Blood Type Pre-Trans Vis Hemolysis Pre-Trans Icterus Pre-Trans EVANGELINA IgG Post-Trans Blood Type Post-Tx Visible Hemolys Post-Trans Icterus Post-Trans EVANGELINA IgG Med Orders - Current: Current Medications Acetaminophen (Tylenol) 650 mg PO Q4H PRN PRN Reason: Pain (Mild 1-3)/fever Albuterol (Proventil Neb Soln) 2.5 mg NEB Q4H PRN PRN Reason: Shortness Of Breath/wheezing Gabapentin (Neurontin) 200 mg PO BEDTIME DONAL Pantoprazole Sodium 80 mg/ (Sodium Chloride) 100 mls @ 10 mls/hr IV .Q10H [facility]AL Stop: 11/24/16 21:00 Last Admin: 11/24/16 08:36 Dose: 10 mls/hr Lorazepam (Ativan) 0.5 - 1 mg IVPUSH Q4H PRN PRN Reason: Nausea/Vomiting Morphine Sulfate (Morphine) 2 - 4 mg IVPUSH Q2H PRN PRN Reason: Pain (severe 7-10) Ondansetron HCl (Zofran Odt) 4 mg PO Q6H PRN PRN Reason: Nausea able to take PO Ondansetron HCl (Zofran) 4 mg IV Q6H PRN PRN Reason: Nausea/Vomiting Trazodone HCl (Trazodone) 50 mg PO BEDTIME PRN PRN Reason: Insomnia Last Admin: 11/24/16 02:19 Dose: 50 mg Discontinued Medications Fentanyl (Sublimaze) Confirm Administered Dose 100 mcg .ROUTE .STK-MED ONE Stop: 11/24/16 10:11 Glycopyrrolate (Glycopyrrolate) 0.4 mg IVPUSH ONETIME ONE Stop: 11/24/16 09:01 Last Admin: 11/24/16 10:05 Dose: 0.4 mg Sodium Chloride (Normal Saline) 1,000 mls @ 125 mls/hr IV ASDIRECTED [facility] Last Admin: 11/23/16 22:26 Dose: 125 mls/hr Pantoprazole Sodium 80 mg/ (Sodium Chloride) 100 mls @ 10 mls/hr IV .Q10H [facility] Last Admin: 11/24/16 05:32 Dose: Not Given Sodium Chloride (Normal Saline) 1,000 mls @ 125 mls/hr IV ASDIRECTED [facility] Last Admin: 11/24/16 09:30 Dose: 125 mls/hr Pantoprazole Sodium 80 mg/ (Sodium Chloride) 80 mls @ 10 mls/hr IV Q8H [facility] Last Admin: 11/24/16 04:04 Dose: 10 mls/hr Dextrose/Lactated Ringer's (Dextrose 5%-Lactated Ringers) 1,000 mls @ 100 [facility]ls[facility] Last Admin: 11/24/16 14:02 Dose: 100 mls/hr Sodium Chloride (Normal Saline) 100 mls @ 3.5 mls/sec IV ASDIRECTED [facility] Stop: 11/24/16 14:00 Last Admin: 11/24/16 13:33 Dose: 3.5 mls/sec Iopamidol (Isovue-300 (61%)) 100 ml IV . DIRECTED PRN PRN Reason: RADIOLOGY EXAM Stop: 11/24/16 14:00 Last Admin: 11/24/16 13:29 Dose: 90 ml Pantoprazole Sodium (Protonix Iv) 40 mg IVPUSH ONETIME ONE Stop: 11/24/16 01:05 Last Admin: 11/24/16 02:19 Dose: 40 mg Pantoprazole Sodium (Protonix Iv) Confirm Administered Dose 80 mg .ROUTE .STK -MED ONE Stop: 11/24/16 03:50 Last Admin: 11/24/16 04:03 Dose: Not Given Propofol (Diprivan 20 Ml) Confirm Administered Dose 200 mg .ROUTE .STK-MED ONE Stop: 11/24/16 10:11 - Exam Quality Assessment: No: Supplemental Oxygen General: Alert, Oriented, Cooperative, No Acute Distress Neck: Supple Lungs: Normal Respiratory Effort Cardiovascular: Regular Rate, Regular Rhythm GI/Abdominal Exam: Soft, No Distention Extremities: No Pedal Edema. No: Increased Warmth Skin: Warm, Dry Psy/Mental Status: Alert, Normal Affect - Problem List & Annotations (1) Acute upper gastrointestinal hemorrhage SNOMED Code(s): 29058055 Code(s): K92.2 - GASTROINTESTINAL HEMORRHAGE, UNSPECIFIED Status: Acute Current Visit: Yes (2) Acute blood loss anemia SNOMED Code(s): 611463374 Code(s): D62 - ACUTE POSTHEMORRHAGIC ANEMIA Status: Acute Current Visit: Yes (3) Tobacco dependence SNOMED Code(s): 41709839 Code(s): F17.200 - NICOTINE DEPENDENCE, UNSPECIFIED, UNCOMPLICATED Status: Chronic Current Visit: Yes (4) Essential hypertension SNOMED Code(s): 46600187 Code(s): I10 - ESSENTIAL (PRIMARY) HYPERTENSION Status: Chronic Current Visit: Yes - Problem List Review Problem List Initiated/Reviewed/Updated: Yes - My Orders Last 24 Hours: My Active Orders 11/24/16 00:22 Resuscitation Status Routine 11/24/16 01:04 Patient Status [ADT] Routine Bedrest Bedside Commode [RC] ASDIRECTED Intake and Output [RC] QSHIFT Notify Provider Vital Signs [RC] ASDIRECTED Oxygen Therapy [RC] PRN RT Aerosol Therapy [RC] ASDIRECTED VTE/DVT Education [RC] Per Unit Routine Vital Signs [RC] Q2HR Acetaminophen [Tylenol] 650 mg PO Q4H PRN Albuterol [Proventil Neb Soln] 2.5 mg NEB Q4H PRN LORazepam [Ativan] 0.5 - 1 mg IVPUSH Q4H PRN Morphine 2 - 4 mg IVPUSH Q2H PRN Ondansetron [Zofran ODT] 4 mg PO Q6H PRN Ondansetron [Zofran] 4 mg IV Q6H PRN Sequential Compression Device [OM.PC] Per Unit Routine Transfuse Red Blood Cells [COMM] Routine VTE Pharmacological Contraindications [AST] Per Unit Routine 11/24/16 04:40 TRANSFUSION REACTION [BBK] Stat 11/24/16 08:30 Sodium Chloride 0.9% [Normal Saline] 100 ml Pantoprazole [ProTONIX IV] 80 mg IV 10 mls/hr 11/24/16 17:00 Dextrose 5%-Lactated Ringers 1,000 ml IV ASDIRECTED 11/24/16 21:00 Pantoprazole [ProTONIX IV] 40 mg IVPUSH Q12H 11/24/16 Breakfast Nothing per Oral Now Diet [DIET] 11/25/16 05:00 BASIC METABOLIC PANEL,BMP [CHEM] Timed CBC W/O DIFF,HEMOGRAM [HEME] Timed (1) - Plan Plan:: Assessment and plan - Acute upper gastrointestinal hemorrhage - 2/2 ulcer in the pyloric channel. There is still a clot on the ulcer suggesting that it had been bleeding recently. Patient responded well to blood transfusion. Blood pressures have been stable in the normal range. -Cardiac monitoring -Maintenance IV fluids -Pantoprazole infusion until 9 PM then every 12 hours bolus dosing -Repeat hemoglobin in the morning -Minimal oral intake with small sips and a few ice chips Acute blood loss anemia - secondary to hemorrhage as above. Hemoglobin 5 at presentation and he required transfusion of 3 units of packed red blood cells. -Management as above. Essential hypertension - blood pressure on the low side and usual medications will remain on hold. Tobacco dependence - strongly encourage cessation Maintenance issues - - DVT prophylaxis - mechanical with active hemorrhage - GI prophylaxis - IV PPI - Nutrition - minimal by mouth intake Disposition - anticipate discharge to home after the hospital stay Primary care physician - [place] system Hamilton Escalante M.D.
[2016-11-24] MEDS: Pantoprazole 40 MG Vial IVPUSH SCH (20:36)
[2016-11-24] MEDS: Gabapentin 100 MG Cap PO SCH (20:36)
[2016-11-25] MEDS: Pantoprazole 40 MG Vial IVPUSH SCH (08:25)
--- NOTE | 2016-11-25 09:10 | PCM.PN ---
- General Info Date of Service: 11/25/16 Functional Status: Reports: Pain Controlled - Review of Systems General: Denies: Weakness Cardiovascular: Denies: Chest Pain Gastrointestinal: Denies: Hematochezia, Melena Systems Review Comment:: No acute events overnight. No complaints of abdominal pain or heartburn. No chest pain. Hemoglobin level has been stable. There has been no melena or hematochezia. Blood pressures have been stable and in the normal range. No fevers or diarrhea. - Patient Data Vitals - Most Recent: Last Vital Signs Temp 35.5 C 11/25/16 07:28 Pulse 77 11/25/16 07:28 Resp 16 11/25/16 07:28 BP 116/59 L 11/25/16 07:28 Pulse Ox 97 11/25/16 07:28 Weight - Most Recent: 60.328 kg I&O - Last 24 Hours: Intake & Output 11/24/16 11/25/16 11/25/16 22:59 06:59 14:59 Intake Total 1365 868 Output Total 1500 600 425 Balance -135 268 -425 Lab Results Last 24 Hours: Laboratory Results - last 24 hr 11/24/16 11/24/16 11/24/16 Range/Units 04:40 09:40 09:40 WBC 13.2 H (4.5-11.0) K/uL RBC 2.71 L (4.30-5.90) M/uL Hgb 8.3 L D (12.0-15.0) g/dL Hct 24.5 L (40.0-54.0) % MCV 90 (80-98) fL MCH 31 (27-31) pg MCHC 34 (32-36) % Plt Count 351 (150-400) K/uL Sodium 138 L (140-148) mmol/L Potassium 3.7 (3.6-5.2) mmol/L Chloride 103 (100-108) mmol/L Carbon Dioxide 27 (21-32) mmol/L Anion Gap 11.7 (5.0-14.0) mmol/L BUN 34 H (7-18) mg/dL Creatinine 0.9 (0.8-1.3) mg/dL Est Cr Clr Drug Dosing 69.82 mL/min Estimated GFR (MDRD) > 60 (>60) Glucose 109 H (74-106) mg/dL Calcium 8.1 L (8.5-10.1) mg/dL Reaction Interpretation Febrile rx 11/24/16 11/25/16 11/25/16 Range/Units 16:40 06:02 06:02 WBC 16.0 H (4.5-11.0) K/uL RBC 2.58 L (4.30-5.90) M/uL Hgb 8.4 L 8.1 L (12.0-15.0) g/dL Hct 23.7 L (40.0-54.0) % MCV 92 (80-98) fL MCH 31 (27-31) pg MCHC 34 (32-36) % Plt Count 379 (150-400) K/uL Sodium 140 (140-148) mmol/L Potassium 3.4 L (3.6-5.2) mmol/L Chloride 104 (100-108) mmol/L Carbon Dioxide 27 (21-32) mmol/L Anion Gap 12.4 (5.0-14.0) mmol/L BUN 16 D (7-18) mg/dL Creatinine 0.8 (0.8-1.3) mg/dL Est Cr Clr Drug Dosing 78.55 mL/min Estimated GFR (MDRD) > 60 (>60) Glucose 108 H (74-106) mg/dL Calcium 8.4 L (8.5-10.1) mg/dL Reaction Interpretation Med Orders - Current: Current Medications Acetaminophen (Tylenol) 650 mg PO Q4H PRN PRN Reason: Pain (Mild 1-3)/fever Albuterol (Proventil Neb Soln) 2.5 mg NEB Q4H PRN PRN Reason: Shortness Of Breath/wheezing Gabapentin (Neurontin) 200 mg PO BEDTIME DONAL Last Admin: 11/24/16 20:36 Dose: 200 mg Potassium Chloride 20 meq/Lidocaine HCl 2 ml/ Sodium Chloride 112 mls @ 56 mls/ hr IV Q2H [facility] Stop: 11/25/16 13:29 Lorazepam (Ativan) 0.5 - 1 mg IVPUSH Q4H PRN PRN Reason: Nausea/Vomiting Morphine Sulfate (Morphine) 2 - 4 mg IVPUSH Q2H PRN PRN Reason: Pain (severe 7-10) Ondansetron HCl (Zofran Odt) 4 mg PO Q6H PRN PRN Reason: Nausea able to take PO Ondansetron HCl (Zofran) 4 mg IV Q6H PRN PRN Reason: Nausea/Vomiting Pantoprazole Sodium (Protonix Iv) 40 mg IVPUSH Q12H [facility] Stop: 11/25/16 11:00 Last Admin: 11/25/16 08:25 Dose: 40 mg Pantoprazole Sodium (Protonix) 40 mg PO BIDAC DONAL Trazodone HCl (Trazodone) 50 mg PO BEDTIME PRN PRN Reason: Insomnia Last Admin: 11/24/16 20:40 Dose: 50 mg Discontinued Medications Fentanyl (Sublimaze) Confirm Administered Dose 100 mcg .ROUTE .STK-MED ONE Stop: 11/24/16 10:11 Glycopyrrolate (Glycopyrrolate) 0.4 mg IVPUSH ONETIME ONE Stop: 11/24/16 09:01 Last Admin: 11/24/16 10:05 Dose: 0.4 mg Sodium Chloride (Normal Saline) 1,000 mls @ 125 [facility]ls[facility] Last Admin: 11/23/16 22:26 Dose: 125 mls/hr Pantoprazole Sodium 80 mg/ (Sodium Chloride) 100 mls @ 10 mls/hr IV .Q10H [facility] Last Admin: 11/24/16 05:32 Dose: Not Given Sodium Chloride (Normal Saline) 1,000 mls @ 125 mls/hr IV [facility] Last Admin: 11/24/16 09:30 Dose: 125 mls/hr Pantoprazole Sodium 80 mg/ (Sodium Chloride) 80 mls @ 10 mls/hr IV Q8H [facility] Last Admin: 11/24/16 04:04 Dose: 10 mls/hr Pantoprazole Sodium 80 mg/ (Sodium Chloride) 100 mls @ 10 mls/hr IV .Q10H [facility] Stop: 11/24/16 21:00 Last Admin: 11/24/16 18:03 Dose: 10 mls/hr Dextrose/Lactated Ringer's (Dextrose 5%-Lactated Ringers) 1,000 mls @ 100 mls/ hr IV [facility] Last Admin: 11/24/16 14:02 Dose: 100 mls/hr Sodium Chloride (Normal Saline) 100 mls @ 3.5 mls/sec IV [facility]ED [facility] Stop: 11/24/16 14:00 Last Admin: 11/24/16 13:33 Dose: 3.5 mls/sec Dextrose/Lactated Ringer's (Dextrose 5%-Lactated Ringers) 1,000 mls @ 75 mls/ hr IV [facility]ED [facility] Last Admin: 11/25/16 00:03 Dose: 75 mls/hr Iopamidol (Isovue-300 (61%)) 100 ml IV . DIRECTED PRN PRN Reason: RADIOLOGY EXAM Stop: 11/24/16 14:00 Last Admin: 11/24/16 13:29 Dose: 90 ml Pantoprazole Sodium (Protonix Iv) 40 mg IVPUSH ONETIME ONE Stop: 11/24/16 01:05 Last Admin: 11/24/16 02:19 Dose: 40 mg Pantoprazole Sodium (Protonix Iv) Confirm Administered Dose 80 mg .ROUTE .STK -MED ONE Stop: 11/24/16 03:50 Last Admin: 11/24/16 04:03 Dose: Not Given Propofol (Diprivan 20 Ml) Confirm Administered Dose 200 mg .ROUTE .STK-MED ONE Stop: 11/24/16 10:11 - Exam Quality Assessment: No: Supplemental Oxygen General: Alert, Oriented, Cooperative, No Acute Distress Neck: Supple Lungs: Normal Respiratory Effort Cardiovascular: Regular Rate, Regular Rhythm GI/Abdominal Exam: Soft, No Distention Extremities: No Pedal Edema. No: Increased Warmth Skin: Warm, Dry Psy/Mental Status: Alert, Normal Affect - Problem List & Annotations (1) Acute upper gastrointestinal hemorrhage SNOMED Code(s): 21262451 Code(s): K92.2 - GASTROINTESTINAL HEMORRHAGE, UNSPECIFIED Status: Acute Current Visit: Yes (2) Acute blood loss anemia SNOMED Code(s): 398748268 Code(s): D62 - ACUTE POSTHEMORRHAGIC ANEMIA Status: Acute Current Visit: Yes (3) Tobacco dependence SNOMED Code(s): 93743779 Code(s): F17.200 - NICOTINE DEPENDENCE, UNSPECIFIED, UNCOMPLICATED Status: Chronic Current Visit: Yes (4) Essential hypertension SNOMED Code(s): 56695821 Code(s): I10 - ESSENTIAL (PRIMARY) HYPERTENSION Status: Chronic Current Visit: Yes - Problem List Review Problem List Initiated/Reviewed/Updated: Yes - My Orders Last 24 Hours: My Active Orders 11/24/16 21:00 Pantoprazole [ProTONIX IV] 40 mg IVPUSH Q12H 11/25/16 09:05 Convert IV to Saline Lock [OM.PC] Routine 11/25/16 09:07 Discontinue Telemetry Monitoring [Cardiac Monitoring Discontinue] [RC] Click to Edit Up ad Rachna [RC] ASDIRECTED 11/25/16 09:08 Transfer Patient (Change bed) [ADT] Routine 11/25/16 09:30 Potassium Chloride 20 meq Lidocaine 1% [Xylocaine 1%] 2 ml Sodium Chloride 0.9 % [Normal Saline] 100 ml IV Q2H 11/25/16 16:30 Pantoprazole [ProTONIX] 40 mg PO BIDAC 11/25/16 18:00 HGB [HEMOGLOBIN] [HEME] Routine 11/25/16 Breakfast Clear Liquid Diet [DIET] 11/26/16 05:00 BASIC METABOLIC PANEL,BMP [CHEM] Timed CBC W/O DIFF,HEMOGRAM [HEME] Timed (1) - Plan Plan:: Assessment and plan - Acute upper gastrointestinal hemorrhage - 2/2 ulcer in the pyloric channel. There is still a clot on the ulcer suggesting that it had been bleeding recently. Hemoglobin stable. No evidence for ongoing bleeding. -Cardiac monitoring -Saline lock IV -Pantoprazole by mouth twice daily -Repeat hemoglobin this evening and in the morning -Clear liquids Acute blood loss anemia - secondary to hemorrhage as above. Hemoglobin 5 at presentation and he required transfusion of 3 units of packed red blood cells. Hemoglobin stable. -Management as above Essential hypertension - blood pressure on the low side and usual medications will remain on hold. Tobacco dependence - strongly encourage cessation Left renal cyst - appears to be cystic but possible solid component. Six-month follow-up ultrasound recommended. Maintenance issues - - DVT prophylaxis - mechanical with active hemorrhage - GI prophylaxis - PPI - Nutrition - clear liquids today Disposition - anticipate discharge to home after the hospital stay Primary care physician - [place] [facility] Hamilton Escalante M.D.
[2016-11-25] MEDS: Potassium Chloride 20 MEQ, Lidocaine 1% 2 ML in Sodium Chloride 0.9% 100 ML IV SCH ×2 (09:58→12:33)
--- NOTE | 2016-11-25 12:06 | HP ---
The patient has been clinically stable with no signs of any additional bleeding at this point. The CT scan yesterday showed some air within the small bowel, which would be expected after an endoscopy. Otherwise, no signs of any malignancy. He did have a hyperdense area in one of the kidneys which would need to be followed up in 6 months with an ultrasound. Otherwise, he will need to be discharged and needs to be scheduled for an upper GI endoscopy in about a month to six weeks to confirm healing of the ulcer. We will await the CLOtest report today and also the biopsy report will be available next Monday or Monday. Rodolfo Gale MD /[id number]
--- NOTE | 2016-11-25 16:38 | PCM.SURGPN ---
- General Info Date of Service: 11/25/16 POD#: 0 Admission Diagnosis/Problem: Acute gastrointestinal hemorrhage Functional Status: Reports: Pain Controlled, Tolerating Diet, Urinating - Review of Systems General: Reports: No Symptoms HEENT: Reports: No Symptoms Pulmonary: Reports: No Symptoms Cardiovascular: Reports: No Symptoms Gastrointestinal: Reports: No Symptoms Genitourinary: Reports: No Symptoms Musculoskeletal: Reports: No Symptoms Skin: Reports: No Symptoms Neurological: Reports: No Symptoms Psychiatric: Reports: No Symptoms Systems Review Comment:: Joey reports that he is feeling well today. Denies any pain. No nausea, vomiting or abdominal pain. He denies having any concerns. Hemoglobin levels have been stable. - Patient Data Vitals - Most Recent: Last Vital Signs Temp 35.5 C 11/25/16 07:28 Pulse 77 11/25/16 11:00 Resp 16 11/25/16 11:00 BP 133/59 L 11/25/16 11:00 Pulse Ox 98 11/25/16 11:00 Weight - Most Recent: 60.328 kg I&O - Last 24 Hours: Intake & Output 11/25/16 11/25/16 11/25/16 06:59 14:59 22:59 Intake Total 868 920 Output Total 600 425 Balance 268 495 Lab Results Last 24 Hrs: Laboratory Results - last 24 hr 11/24/16 11/24/16 11/25/16 Range/Units 04:40 16:40 06:02 WBC 16.0 H (4.5-11.0) K/uL RBC 2.58 L (4.30-5.90) M/uL Hgb 8.4 L 8.1 L (12.0-15.0) g/dL Hct 23.7 L (40.0-54.0) % MCV 92 (80-98) fL MCH 31 (27-31) pg MCHC 34 (32-36) % Plt Count 379 (150-400) K/uL Sodium (140-148) mmol/L Potassium (3.6-5.2) mmol/L Chloride (100-108) mmol/L Carbon Dioxide (21-32) mmol/L Anion Gap (5.0-14.0) mmol/L BUN (7-18) mg/dL Creatinine (0.8-1.3) mg/dL Est Cr Clr Drug Dosing mL/min Estimated GFR (MDRD) (>60) Glucose (74-106) mg/dL Calcium (8.5-10.1) mg/dL Reaction Interpretation Febrile rx 11/25/16 Range/Units 06:02 WBC (4.5-11.0) K/uL RBC (4.30-5.90) M/uL Hgb (12.0-15.0) g/dL Hct (40.0-54.0) % MCV (80-98) fL MCH (27-31) pg MCHC (32-36) % Plt Count (150-400) K/uL Sodium 140 (140-148) mmol/L Potassium 3.4 L (3.6-5.2) mmol/L Chloride 104 (100-108) mmol/L Carbon Dioxide 27 (21-32) mmol/L Anion Gap 12.4 (5.0-14.0) mmol/L BUN 16 D (7-18) mg/dL Creatinine 0.8 (0.8-1.3) mg/dL Est Cr Clr Drug Dosing 78.55 mL/min Estimated GFR (MDRD) > 60 (>60) Glucose 108 H (74-106) mg/dL Calcium 8.4 L (8.5-10.1) mg/dL Reaction Interpretation Results Last 24 Hrs: Microbiology 11/24/16 11:30 CLOtest - Final Stomach NEGATIVE CLOTEST Med Orders - Current: Current Medications Acetaminophen (Tylenol) 650 mg PO Q4H PRN PRN Reason: Pain (Mild 1-3)/fever Albuterol (Proventil Neb Soln) 2.5 mg NEB Q4H PRN PRN Reason: Shortness Of Breath/wheezing Gabapentin (Neurontin) 200 mg PO BEDTIME DONAL Last Admin: 11/24/16 20:36 Dose: 200 mg Lorazepam (Ativan) 0.5 - 1 mg IVPUSH Q4H PRN PRN Reason: Nausea/Vomiting Morphine Sulfate (Morphine) 2 - 4 mg IVPUSH Q2H PRN PRN Reason: Pain (severe 7-10) Ondansetron HCl (Zofran Odt) 4 mg PO Q6H PRN PRN Reason: Nausea able to take PO Ondansetron HCl (Zofran) 4 mg IV Q6H PRN PRN Reason: Nausea/Vomiting Pantoprazole Sodium (Protonix) 40 mg PO BIDAC DONAL Trazodone HCl (Trazodone) 50 mg PO BEDTIME PRN PRN Reason: Insomnia Last Admin: 11/24/16 20:40 Dose: 50 mg Discontinued Medications Fentanyl (Sublimaze) Confirm Administered Dose 100 mcg .ROUTE .STK-MED ONE Stop: 11/24/16 10:11 Glycopyrrolate (Glycopyrrolate) 0.4 mg IVPUSH ONETIME ONE Stop: 11/24/16 09:01 Last Admin: 11/24/16 10:05 Dose: 0.4 mg Sodium Chloride (Normal Saline) 1,000 mls @ 125 mls/hr IV ASDIRECTED [facility] Last Admin: 11/23/16 22:26 Dose: 125 mls/hr Pantoprazole Sodium 80 mg/ (Sodium Chloride) 100 mls @ 10 mls/hr IV .Q10H [facility] Last Admin: 11/24/16 05:32 Dose: Not Given Sodium Chloride (Normal Saline) 1,000 mls @ 125 mls/hr IV ASDIRECTED [facility] Last Admin: 11/24/16 09:30 Dose: 125 mls/hr Pantoprazole Sodium 80 mg/ (Sodium Chloride) 80 mls @ 10 mls/hr IV Q8H [facility] Last Admin: 11/24/16 04:04 Dose: 10 mls/hr Pantoprazole Sodium 80 mg/ (Sodium Chloride) 100 mls @ 10 mls/hr IV .Q10H [facility] Stop: 11/24/16 21:00 Last Admin: 11/24/16 18:03 Dose: 10 mls/hr Dextrose/Lactated Ringer's (Dextrose 5%-Lactated Ringers) 1,000 mls @ 100 mls/ hr IV ASDIRECTED [facility] Last Admin: 11/24/16 14:02 Dose: 100 mls/hr Sodium Chloride (Normal Saline) 100 mls @ 3.5 mls/sec IV ASDIRECTED [facility] Stop: 11/24/16 14:00 Last Admin: 11/24/16 13:33 Dose: 3.5 mls/sec Dextrose/Lactated Ringer's (Dextrose 5%-Lactated Ringers) 1,000 mls @ 75 mls/ hr IV ASDIRECTED [facility] Last Admin: 11/25/16 00:03 Dose: 75 mls/hr Potassium Chloride 20 meq/Lidocaine HCl 2 ml/ Sodium Chloride 112 mls @ 56 mls/ hr IV Q2H DONAL Stop: 11/25/16 13:29 Last Admin: 11/25/16 12:33 Dose: 56 mls/hr Iopamidol (Isovue-300 (61%)) 100 ml IV . DIRECTED PRN PRN Reason: RADIOLOGY EXAM Stop: 11/24/16 14:00 Last Admin: 11/24/16 13:29 Dose: 90 ml Pantoprazole Sodium (Protonix Iv) 40 mg IVPUSH ONETIME ONE Stop: 11/24/16 01:05 Last Admin: 11/24/16 02:19 Dose: 40 mg Pantoprazole Sodium (Protonix Iv) Confirm Administered Dose 80 mg .ROUTE .STK -MED ONE Stop: 11/24/16 03:50 Last Admin: 11/24/16 04:03 Dose: Not Given Pantoprazole Sodium (Protonix Iv) 40 mg IVPUSH Q12H DONAL Stop: 11/25/16 11:00 Last Admin: 11/25/16 08:25 Dose: 40 mg Propofol (Diprivan 20 Ml) Confirm Administered Dose 200 mg .ROUTE .STK-MED ONE Stop: 11/24/16 10:11 - Exam Wound/Incisions: Other (NA) Quality Assessment: DVT Prophylaxis General: Alert, Oriented, No Acute Distress HEENT: Pupils Equal, Pupils Reactive Neck: Supple Lungs: Clear to Auscultation, Normal Respiratory Effort Cardiovascular: Regular Rate, Regular Rhythm GI/Abdominal Exam: Soft, Non-Tender, No Organomegaly, No Distention Extremities: Normal Inspection Skin: Warm, Dry, Intact Neurological: No New Focal Deficit Psy/Mental Status: Alert, Normal Affect, Normal Mood - Problem List & Annotations (1) Acute upper gastrointestinal hemorrhage SNOMED Code(s): 57023612 Code(s): K92.2 - GASTROINTESTINAL HEMORRHAGE, UNSPECIFIED Status: Acute Current Visit: Yes - Problem List Review Problem List Initiated/Reviewed/Updated: Yes - My Orders Last 24 Hours: Active Orders 24 hr Category Date Time Status Transfer Patient (Change bed) [ADT] Routine ADT 11/25/16 09:08 Ordered Discontinue Telemetry Monitoring [Cardiac Monitoring Care 11/25/16 09:07 Active Discontinue] [RC] Click to Edit Up ad Rachna [RC] ASDIRECTED Care 11/25/16 09:07 Active Clear Liquid Diet [DIET] Diet 11/25/16 Breakfast Active BASIC METABOLIC PANEL,BMP [CHEM] Timed Lab 11/26/16 05:00 Ordered CBC W/O DIFF,HEMOGRAM [HEME] Timed (1) Lab 11/26/16 05:00 Ordered HGB [HEMOGLOBIN] [HEME] Routine Lab 11/25/16 18:00 Ordered Pantoprazole [ProTONIX] Med 11/25/16 16:30 Active 40 mg PO BIDAC Convert IV to Saline Lock [OM.PC] Routine Oth 11/25/16 09:05 Ordered Medication Orders Acetaminophen (Tylenol) 650 mg PO Q4H PRN PRN Reason: Pain (Mild 1-3)/fever Albuterol (Proventil Neb Soln) 2.5 mg NEB Q4H PRN PRN Reason: Shortness Of Breath/wheezing Gabapentin (Neurontin) 200 mg PO BEDTIME DONAL Last Admin: 11/24/16 20:36 Dose: 200 mg Lorazepam (Ativan) 0.5 - 1 mg IVPUSH Q4H PRN PRN Reason: Nausea/Vomiting Morphine Sulfate (Morphine) 2 - 4 mg IVPUSH Q2H PRN PRN Reason: Pain (severe 7-10) Ondansetron HCl (Zofran Odt) 4 mg PO Q6H PRN PRN Reason: Nausea able to take PO Ondansetron HCl (Zofran) 4 mg IV Q6H PRN PRN Reason: Nausea/Vomiting Pantoprazole Sodium (Protonix) 40 mg PO BIDAC DONAL Trazodone HCl (Trazodone) 50 mg PO BEDTIME PRN PRN Reason: Insomnia Last Admin: 11/24/16 20:40 Dose: 50 mg Admin: 11/24/16 02:19 Dose: 50 mg - Assessment Assessment (Free Text/Narrative):: 1. Acute upper gastrointestinal hemorrhage - ulcer in the pyloric channel. Stable Hemoglobin. No evidence of active bleeding. 2. Acute blood loss anemia - Hemoglobin stable. Managed by hospitalist. 3. Essential Hypertension - managed by hospitalist. 4. Tobacco dependence - managed by hospitalist. 5. Left renal cyst - appears to be cystic but possible solid component - Plan Plan (Free Text/Narrative):: Pyloric channel ulcer - H. pylori negative. Recommend follow up in 4-6 weeks with EGD for ulcer resolution. Left renal cyst - recommend ultrasound follow up in 6 months. MARTIN Ashley Student
[2016-11-25] MEDS: Pantoprazole 40 MG Tab.CR PO SCH (16:51)
[2016-11-25] MEDS: traZODone 50 MG Tab PO PRN (21:10)
[2016-11-25] MEDS: Gabapentin 100 MG Cap PO SCH (21:10)
[2016-11-26] MEDS: Pantoprazole 40 MG Tab.CR PO SCH (07:40)
[2016-11-26 07:45] VITALS: BP 132/71
--- NOTE | 2016-11-26 10:15 | PCM.DCSUM1 ---
Discharge Summary - Hospital Course Brief History: 66-year-old male with history of tobacco dependence and coronary artery disease presented with dizziness/lightheadedness and was found to have a hemoglobin of 5. He was admitted for management of an acute upper gastrointestinal hemorrhage with acute blood loss anemia. - Discharge Data Discharge Date: 11/26/16 Discharge Disposition: Home, Self-Care 01 Condition: Good - Discharge Diagnosis/Problem(s) (1) Acute upper gastrointestinal hemorrhage SNOMED Code(s): 16315350 ICD Code: K92.2 - GASTROINTESTINAL HEMORRHAGE, UNSPECIFIED Status: Acute (2) Acute blood loss anemia SNOMED Code(s): 520824345 ICD Code: D62 - ACUTE POSTHEMORRHAGIC ANEMIA Status: Acute (3) Tobacco dependence SNOMED Code(s): 60130466 ICD Code: F17.200 - NICOTINE DEPENDENCE, UNSPECIFIED, UNCOMPLICATED Status : Chronic (4) Essential hypertension SNOMED Code(s): 10044956 ICD Code: I10 - ESSENTIAL (PRIMARY) HYPERTENSION Status: Chronic - Patient Summary/Data Operative Procedure(s) Performed: EGD with Dr. Gale revealing an ulcer in the pyloric channel Recommended Follow-up Testing/Procedures: Repeat EGD in 4-6 weeks Hospital Course: Joey presented to the emergency room with syncope, dizziness and lightheadedness as well as fatigue. Workup in the emergency room revealed a hemoglobin of 5 and he was admitted to the intensive care unit with concern that he has an acute upper GI bleed with acute blood loss anemia. Following admission he received IV pantoprazole, IV fluids as well as 3 units of packed red blood cells. His borderline low blood pressures did improve and his antihypertensive medications were held. Overnight there is no obvious evidence for recurrence of the bleeding. Hemoglobin the morning after admission was above 8. An EGD completed the morning after admission revealed a large ulcer in the pyloric channel that had a clot overlying the ulcer. This was felt to suggested had been recently bleeding and could still be unstable with the clot over the top. He was kept nothing by mouth for an additional day before clear liquids were started. His hemoglobin has been stable throughout the hospital stay. He has not had any recurrence of the bleeding. His proton pump inhibitor has been transitioned to oral and he has tolerated this transition well. He has tolerated the clear liquids and this morning. Liquids without any heartburn or epigastric pain. Hemoglobin has remained stable and above 8. I believe he is safe for hospital discharge and outpatient management at this time. He will be on a twice daily proton pump inhibitor for the next month and then likely can decrease to once daily thereafter. He has a prescription for an iron supplement which she will start intake once daily. I strongly recommended avoiding alcohol and quitting smoking. I also recommended a full liquid diet for the next one week before introducing soft foods and his diet. He has follow-up scheduled for next Monday, 4 days from now. A follow-up EGD in 4-6 weeks was also recommended. - Patient Instructions Diet: Full Liquid Diet (for one week ) Activity: As Tolerated Driving: May Drive Today Showering/Bathing: May Shower Notify Provider of: Fever, Increased Pain, Nausea and/or Vomiting Other/Special Instructions: 1. You were in the hospital for management of an acute upper gastrointestinal bleed caused by an ulcer in the pyloric channel. Because of the recent bleeding and clots over the area of bleeding I recommend that you maintain a full liquid diet for the next week. After that you may reintroduce food and start with soft and bland foods. The less that you have to chew your food the better for the next 2 weeks. 2. Because of the significant bleeding you required a blood transfusion and we transfused 3 units of packed red blood cells. I recommend that you take your iron supplement daily for the next month to help rebuild your hemoglobin and red blood cells. 3. I would recommend that you avoid nicotine-containing products and alcohol to help your ulcer heal up. You should keep caffeine to a minimum as this can slow the healing of the ulcer as well. 4. please follow-up with Dr. Gale next Monday at 9:30 in the morning. He will want to perform a repeat endoscopy in 4-6 weeks to make sure the ulcer has healed. 5. I would strongly recommend that you have an ultrasound of your left kidney in approximately [address] scan showed a cystic structure that needs to be reevaluated and the ultrasound will be the most effective method. This is on the upper pole of your left kidney. You should talk to your regular doctor at the [facility] about scheduling this. 6. Please seek medical attention if he develops fever greater than 101, develop chest pain, have sudden onset of shortness of breath, have black or tarry stools, have bright red blood in your stool or you develop dizziness/ lightheadedness and feeling like you're going to pass out. - Discharge Plan Prescriptions/Med Rec: Pantoprazole [ProTONIX] 40 mg PO BIDAC #60 tab.cr Home Medications: Home Meds Atenolol 100 mg PO DAILY 11/23/16 [History] Chlorthalidone 50 mg PO DAILY 11/23/16 [History] Ferrous Gluconate 1 tab PO BID 11/23/16 [History] Gabapentin [Neurontin] 200 mg PO BEDTIME 11/23/16 [History] Lisinopril 40 mg PO DAILY 11/23/16 [History] atorvaSTATin [Lipitor] 40 mg PO DAILY 11/23/16 [History] traZODone 50 mg PO BEDTIME PRN 11/23/16 [History] Pantoprazole [ProTONIX] 40 mg PO BIDAC #60 tab.cr 11/26/16 [Rx] Patient Handouts: Peptic Ulcer, Zncm-tt-Daff, Smoking Cessation, Tips for Success, Pantoprazole tablets Referrals: Rodolfo Gael MD [Physician] - 11/30/16 9:30 am (needs CBC, B12 and ferritin at this appointment ) Hue Juarez PA [Primary Care Provider] - (f/u in six months for US of the left kidney to reassess probable cyst (1.7 mm cyst on upper pole of the left kidney)) - Discharge Summary/Plan Comment DC Time >30 min.: No (25) - Patient Data Vitals - Most Recent: Last Vital Signs Temp 35.9 C 11/26/16 07:43 Pulse 87 11/26/16 07:43 Resp 16 11/26/16 07:43 BP 132/71 11/26/16 07:43 Pulse Ox 99 11/26/16 07:43 Weight - Most Recent: 60.328 kg I&O - Last 24 hours: Intake & Output 11/25/16 11/26/16 11/26/16 22:59 06:59 14:59 Intake Total 600 300 Output Total 150 Balance 450 300 Lab Results - Last 24 hrs: Laboratory Results - last 24 hr 11/25/16 11/26/16 11/26/16 Range/Units 18:15 06:00 06:00 WBC 17.7 H (4.5-11.0) K/uL RBC 2.63 L (4.30-5.90) M/uL Hgb 8.5 L 8.1 L (12.0-15.0) g/dL Hct 24.6 L (40.0-54.0) % MCV 94 (80-98) fL MCH 31 (27-31) pg MCHC 33 (32-36) % Plt Count 429 H (150-400) K/uL Sodium 142 (140-148) mmol/L Potassium 3.7 (3.6-5.2) mmol/L Chloride 105 (100-108) mmol/L Carbon Dioxide 28 (21-32) mmol/L Anion Gap 8.9 (5.0-14.0) mmol/L BUN 9 (7-18) mg/dL Creatinine 0.8 (0.8-1.3) mg/dL Est Cr Clr Drug Dosing 78.55 mL/min Estimated GFR (MDRD) > 60 (>60) Glucose 93 (74-106) mg/dL Calcium 8.5 (8.5-10.1) mg/dL BERTHA Results - Last 24 hrs: Microbiology 11/24/16 11:30 CLOtest - Final Stomach NEGATIVE CLOTEST Med Orders - Current: Current Medications Acetaminophen (Tylenol) 650 mg PO Q4H PRN PRN Reason: Pain (Mild 1-3)/fever Albuterol (Proventil Neb Soln) 2.5 mg NEB Q4H PRN PRN Reason: Shortness Of Breath/wheezing Gabapentin (Neurontin) 200 mg PO BEDTIME DONAL Last Admin: 11/25/16 21:10 Dose: 200 mg Lorazepam (Ativan) 0.5 - 1 mg IVPUSH Q4H PRN PRN Reason: Nausea/Vomiting Morphine Sulfate (Morphine) 2 - 4 mg IVPUSH Q2H PRN PRN Reason: Pain (severe 7-10) Ondansetron HCl (Zofran Odt) 4 mg PO Q6H PRN PRN Reason: Nausea able to take PO Ondansetron HCl (Zofran) 4 mg IV Q6H PRN PRN Reason: Nausea/Vomiting Pantoprazole Sodium (Protonix) 40 mg PO BIDAC DONAL Last Admin: 11/26/16 07:40 Dose: 40 mg Trazodone HCl (Trazodone) 50 mg PO BEDTIME PRN PRN Reason: Insomnia Last Admin: 11/25/16 21:10 Dose: 50 mg Discontinued Medications Fentanyl (Sublimaze) Confirm Administered Dose 100 mcg .ROUTE .STK-MED ONE Stop: 11/24/16 10:11 Glycopyrrolate (Glycopyrrolate) 0.4 mg IVPUSH ONETIME ONE Stop: 11/24/16 09:01 Last Admin: 11/24/16 10:05 Dose: 0.4 mg Sodium Chloride (Normal Saline) 1,000 mls @ 125 mls/hr IV ASDIRECTED DONAL Last Admin: 11/23/16 22:26 Dose: 125 mls/hr Pantoprazole Sodium 80 mg/ (Sodium Chloride) 100 mls @ 10 mls/hr IV .Q10H DONAL Last Admin: 11/24/16 05:32 Dose: Not Given Sodium Chloride (Normal Saline) 1,000 mls @ 125 mls/hr IV ASDIRECTED [facility] Last Admin: 11/24/16 09:30 Dose: 125 mls/hr Pantoprazole Sodium 80 mg/ (Sodium Chloride) 80 mls @ 10 mls/hr IV Q8H DONAL Last Admin: 11/24/16 04:04 Dose: 10 mls/hr Pantoprazole Sodium 80 mg/ (Sodium Chloride) 100 mls @ 10 mls/hr IV .Q10H DONAL Stop: 11/24/16 21:00 Last Admin: 11/24/16 18:03 Dose: 10 mls/hr Dextrose/Lactated Ringer's (Dextrose 5%-Lactated Ringers) 1,000 mls @ 100 mls/ hr IV ASDIRECTED [facility] Last Admin: 11/24/16 14:02 Dose: 100 mls/hr Sodium Chloride (Normal Saline) 100 mls @ 3.5 mls/sec IV ASDIRECTED DONAL Stop: 11/24/16 14:00 Last Admin: 11/24/16 13:33 Dose: 3.5 mls/sec Dextrose/Lactated Ringer's (Dextrose 5%-Lactated Ringers) 1,000 mls @ 75 mls/ hr IV ASDIRECTED [facility] Last Admin: 11/25/16 00:03 Dose: 75 mls/hr Potassium Chloride 20 meq/Lidocaine HCl 2 ml/ Sodium Chloride 112 mls @ 56 mls/ hr IV Q2H DONAL Stop: 11/25/16 13:29 Last Admin: 11/25/16 12:33 Dose: 56 mls/hr Iopamidol (Isovue-300 (61%)) 100 ml IV . DIRECTED PRN PRN Reason: RADIOLOGY EXAM Stop: 11/24/16 14:00 Last Admin: 11/24/16 13:29 Dose: 90 ml Pantoprazole Sodium (Protonix Iv) 40 mg IVPUSH ONETIME ONE Stop: 11/24/16 01:05 Last Admin: 11/24/16 02:19 Dose: 40 mg Pantoprazole Sodium (Protonix Iv) Confirm Administered Dose 80 mg .ROUTE .STK -MED ONE Stop: 11/24/16 03:50 Last Admin: 11/24/16 04:03 Dose: Not Given Pantoprazole Sodium (Protonix Iv) 40 mg IVPUSH Q12H DONAL Stop: 11/25/16 11:00 Last Admin: 11/25/16 08:25 Dose: 40 mg Propofol (Diprivan 20 Ml) Confirm Administered Dose 200 mg .ROUTE .STK-MED ONE Stop: 11/24/16 10:11 *Q Meaningful Use (DIS) - VTE *Q VTE Criteria *Q: VTE Pharmacological Contraindications *Q: Active Hemorrhage - Stroke *Q Stroke Criteria *Q: - AMI *Q AMI Criteria *Q:
--- NOTE | 2016-11-27 08:03 | PN ---
DATE OF SERVICE: 11/26/2016 The patient has been clinically stable. No signs of further bleeding. Hemoglobin is more or less stable over the last 24 hours. He will likely be sent home today on proton pump inhibitors. Of note, his CLOtest was negative. We will ask him to followup with Dr. Gale in [facility] next Monday with CBC, B12, and ferritin levels obtained at that appointment. He should be scheduled for a repeat endoscopy at that time, fewer month down the road to confirm healing of the gastric ulcer. Rodolfo Gale MD /[id number]
--- NOTE | 2016-11-28 13:08 | OR ---
DATE OF PROCEDURE: 11/24/2016 PREOPERATIVE DIAGNOSIS: Upper GI bleeding. POSTOPERATIVE DIAGNOSES: 1. Upper GI bleeding associated with a large pyloric channel ulcer. 2. Duodenitis. OPERATIVE PROCEDURES: Upper GI endoscopy with; 1. Biopsies of edge of pyloric channel ulcer for histologic evaluation. 2. Biopsies of antrum for CLOtest. ANESTHESIA: IV sedation. INDICATION FOR PROCEDURE: This is a 66-year-old male presenting with some GI bleeding. The patient has had both some black and bloody stools and presented with a hemoglobin in the 5 range. The patient was transfused somewhat over the night and is now to undergo an upper endoscopy with biopsies as indicated presently. Potential risks including bleeding and perforation were discussed, and the patient wishes to proceed. DETAILS OF PROCEDURE: The patient was taken to the operating room and placed in a left lateral decubitus position. IV sedation was administered, after which the upper GI endoscope was passed orally through the length of the esophagus and into the stomach with retroflexion view of the fundus, after that through the pyloric channel and into the duodenum to the junction of the third and fourth portions. The findings included normal esophagus, EG junction, and proximal stomach. As one passed into the antral area, the patient was noted to have a large pyloric channel ulcer. This was posteriorly located and measured around 1 cm. It contained a central clot within it. No active bleeding was seen. The scope was able to be passed across the pylorus, and the proximal several centimeters of the duodenum were quite reddened, but without erosions or ulcers. Beyond the area of the duodenal bulb, the duodenum normalized. At this point, biopsies were obtained from the antrum and sent for CLOtest for H. pylori. Multiple biopsies were then obtained circumferentially from the edge of the ulcer. Care was taken to avoid, actually, biopsying this site of the clot so as to minimize chances of recurrent bleeding. These specimens were then sent for histologic evaluation. The scope was then withdrawn, and the patient was taken to the recovery room in a satisfactory condition. Rodolfo Gale MD /[id number]
== END 2016-11-26 10:40 | disposition home or self-care (01) | DRG 378 ==
LOC: JP.ED 20:29 → JP.ICU 11-24 00:21 → JP.MS 11-25 11:00
PROVIDERS: ADMIT Internal Medicine; ATTEND Internal Medicine
DX: K25.4 Chronic or unspecified gastric ulcer with hemorrhage (principal); D62 Acute posthemorrhagic anemia; I10 Essential (primary) hypertension; F17.210 Nicotine dependence, cigarettes, uncomplicated; E78.00 Pure hypercholesterolemia, unspecified; M19.90 Unspecified osteoarthritis, unspecified site; M54.9 Dorsalgia, unspecified; G89.29 Other chronic pain; Z87.11 Personal history of peptic ulcer disease; Z88.8 Allergy status to other drugs, medicaments and biological substances; Z72.89 Other problems related to lifestyle; K29.80 Duodenitis without bleeding; N28.1 Cyst of kidney, acquired; F10.10 Alcohol abuse, uncomplicated
CPT/HCPCS: 36415; 36430; 70450; 74177; 74177-26; 80048; 80053; 82140; 82728; 83550; 83605; 83615; 83690; 83735; 84100; 84443; 84484; 85018; 85025; 85027; 85610; 86850; 86900; 86901; 86920; 86922; 87081; 88305; 88341; 88342; 93005; 93010; 96374; 96375; 99223-AI; 99232; 99238; 99284; 99285-25; A9270-GY; C9113; J2704; J3010; J3480; J3490; J7030; J7040; J7042; P9016; Q9967

== ENCOUNTER 2016-12-02 14:35 | Emergency (ER) | payer OTHER ==
--- NOTE | 2016-12-02 15:34 | EDM.PDOC ---
ED HPI GENERAL MEDICAL PROBLEM - General Chief Complaint: Allergic Reaction Stated Complaint: HEMOGLOBIN IS LOW/SWOLLEN LEGS Time Seen by Provider: 12/02/16 14:56 Source of Information: Reports: Patient, Family History Limitations: Reports: No Limitations - History of Present Illness INITIAL COMMENTS - FREE TEXT/NARRATIVE: Joey presents with complaints of edema to bilateral lower extremities for 4 days. He states his left lower started developing edema on Monday of this week starting at his foot and ankle then moving up to his knee. He also states his right leg started swelling shortly after. He has tried elevation, ice and rest. Joey reports he had previous swelling like this when he had an allergic reaction to a medication. Today he denies fever, chills, pain, SOB or difficulty breathing. Joey reports emesis on Monday11/28/16 after trying to take iron supplement. He denies black, tar-like or bloody stools and coffee ground emesis. Bilateral Feet Pain Score (Numeric/FACES): 8 - Related Data Allergies Allergy/AdvReac Type Severity Reaction Status Date / Time hydrochlorothiazide Allergy Fluid Verified 11/23/16 21:52 Retention nifedipine [From Procardia] Allergy Swelling Verified 11/23/16 21:52 Home Meds: Home Meds Atenolol 100 mg PO DAILY 11/23/16 [History] Chlorthalidone 50 mg PO DAILY 11/23/16 [History] Ferrous Gluconate 1 tab PO BID 11/23/16 [History] Gabapentin [Neurontin] 200 mg PO BEDTIME 11/23/16 [History] Lisinopril 40 mg PO DAILY 11/23/16 [History] atorvaSTATin [Lipitor] 40 mg PO DAILY 11/23/16 [History] traZODone 50 mg PO BEDTIME PRN 11/23/16 [History] Pantoprazole [ProTONIX] 40 mg PO BIDAC #60 tab.cr 11/26/16 [Rx] Past Medical History HEENT History: Reports: Other (See Below) Other HEENT History: dental infection recent Cardiovascular History: Reports: High Cholesterol, Hypertension Gastrointestinal History: Reports: PUD Musculoskeletal History: Reports: Back Pain, Chronic, Osteoarthritis, Other ( See Below) Other Musculoskeletal History: degenerative disc disease. twitchy legs at night Other Psychiatric History: no been sleeping well for 1 wk Other Hematologic History: hgb 8.4 - Infectious Disease History Infectious Disease History: Reports: Chicken Pox Social & Family History - Tobacco Use Smoking Status *Q: Current Every Day Smoker Years of Tobacco use: 50 Packs/Tins Daily: 1 Used Tobacco, but Quit: No - Caffeine Use Caffeine Use: Reports: Coffee - Recreational Drug Use Recreational Drug Use: Yes ED ROS ALLERGIC REACTION - Review of Systems Review Of Systems: See Below Constitutional: Denies: Fever, Chills, Malaise, Weakness HEENT: Reports: No Symptoms Respiratory: Reports: Other (Patient continues to smoke 1ppd cigarettes. ). Denies: Shortness of Breath, Wheezing, Cough, Sputum Cardiovascular: Reports: Dyspnea on Exertion, Edema, Other (Bilateral lower extremity edema. ). Denies: Chest Pain, Blood Pressure Problem, Lightheadedness , Orthopnea, Palpitations, PND, Syncope Endocrine: Reports: No Symptoms GI/Abdominal: Reports: No Symptoms : Reports: No Symptoms Musculoskeletal: Reports: Leg Pain, Foot Pain Skin: Denies: Bruising, Rash, Erythema, Wound Neurological: Denies: Headache, Numbness, Syncope, Tingling, Difficulty Walking , Weakness Hematologic/Lymphatic: Reports: No Symptoms Immunologic: Reports: No Symptoms ED EXAM GENERAL NO PERIP PULSE - Physical Exam Exam: See Below Text/Narrative:: Joey is an alert,oriented and pleasant 66 year old male presenting to the ER today for an allergic reaction. He reports he has swelling to bilateral lower extremities that started with the lower left leg on Monday (11/28/16) then moving to the right leg. Joey also reports he had significant vomiting on Monday after trying to take iron supplements. He reports he has been taking protonix as directed. Joey was recently discharged from [facility] with a HGB of 8. Exam Limited By: No Limitations General Appearance: Alert, WD/WN, No Apparent Distress Eye Exam: Bilateral Eye: EOMI, Normal Inspection, PERRL Ears: Normal External Exam, Normal Canal, Hearing Grossly Normal, Normal TMs Nose: Normal Inspection, Normal Mucosa, No Blood Throat/Mouth: Normal Inspection, Normal Oropharynx, Normal Voice, No Airway Compromise Head: Atraumatic, Normocephalic Neck: Normal Inspection, Supple, Non-Tender, Full Range of Motion. No: Lymphadenopathy (R), Lymphadenopathy (L) Respiratory/Chest: No Respiratory Distress, Lungs Clear, Normal Breath Sounds, No Accessory Muscle Use, Chest Non-Tender Cardiovascular: Normal Peripheral Pulses, No Murmur, No Rub, Other (Heart rate is tachycardic) GI/Abdominal: Normal Bowel Sounds, Soft, Non-Tender, No Distention, No Mass Back Exam: Normal Inspection, Full Range of Motion. No: CVA Tenderness (R), CVA Tenderness (L) Extremities: Normal Range of Motion, Other (Pain to left ankle, edema is 3+, non -pitting to knees, right leg slightly less. Negative Rodrick's sign. ) Neurological: Alert, Oriented, Normal Cognition, No Motor/Sensory Deficits Psychiatric: Normal Affect, Normal Mood Skin Exam: Warm, Dry, No Rash Lymphatic: No Adenopathy EKG INTERPRETATION EKG Date: 12/02/16 Rhythm: Other (Sinus tachycardia) P-Wave: Present Course - Vital Signs Last Recorded V/S: Last Vital Signs Temp 35.9 C 12/02/16 17:55 Pulse 108 H 12/02/16 17:55 Resp 15 12/02/16 17:55 BP 157/92 H 12/02/16 17:55 Pulse Ox 99 12/02/16 16:48 - Orders/Labs/Meds Orders: Active Orders 24 hr Category Date Time Status EKG Documentation Completion [RC] ASDIRECTED Care 12/02/16 15:18 Active Chest 2V [CR] Stat Exams 12/02/16 15:18 Taken RED BLOOD CELLS LP [BBK] Stat Lab 12/02/16 15:30 Results TYPE AND SCREEN [BBK] Stat Lab 12/02/16 15:30 Results Lactated Ringers [Ringers, Lactated] 1,000 ml Med 12/02/16 16:30 Active IV ASDIRECTED Potassium Chloride 20 meq Med 12/02/16 16:30 Active Lidocaine 1% [Xylocaine 1%] 2 ml Sodium Chloride 0.9% [Normal Saline] 100 ml IV ONETIME Sodium Chloride 0.9% [Saline Flush] Med 12/02/16 16:17 Active 10 ml FLUSH ASDIRECTED PRN Saline Lock Insert [OM.PC] Routine Oth 12/02/16 16:17 Ordered EKG 12 Lead [EK] Routine Ther 12/02/16 15:18 Ordered Medication Orders Lactated Ringer's (Ringers, Lactated) 1,000 mls @ 125 mls/hr IV ASDIRECTED DONAL Last Admin: 12/02/16 16:46 Dose: 125 mls/hr Potassium Chloride 20 meq/Lidocaine HCl 2 ml/ Sodium Chloride 112 mls @ 56 mls/ hr IV ONETIME ONE Stop: 12/02/16 18:29 Last Admin: 12/02/16 16:47 Dose: 56 mls/hr Sodium Chloride (Saline Flush) 10 ml FLUSH ASDIRECTED PRN PRN Reason: Keep Vein Open Last Admin: 12/02/16 17:02 Dose: 10 ml Labs: Laboratory Tests 12/02/16 12/02/16 12/02/16 Range/Units 15:30 15:34 15:34 WBC 14.0 H (4.5-11.0) K/uL RBC 1.88 L (4.30-5.90) M/uL Hgb 5.7 L* D (12.0-15.0) g/dL Hct 17.7 L (40.0-54.0) % MCV 94 (80-98) fL MCH 30 (27-31) pg MCHC 32 (32-36) % Plt Count 656 H (150-400) K/uL Neut % (Auto) 69 H (36-66) % Lymph % (Auto) 18 L (24-44) % [place] % (Auto) 10 H (2-6) % Eos % (Auto) 3 (2-4) % Baso % (Auto) 1 (0-1) % Sodium 138 L (140-148) mmol/L Potassium 3.3 L (3.6-5.2) mmol/L Chloride 103 (100-108) mmol/L Carbon Dioxide 27 (21-32) mmol/L Anion Gap 11.3 (5.0-14.0) mmol/L BUN 6 L (7-18) mg/dL Creatinine 0.7 L (0.8-1.3) mg/dL Est Cr Clr Drug Dosing 89.29 mL/min Estimated GFR (MDRD) > 60 (>60) Glucose 103 (74-106) mg/dL Calcium 8.2 L (8.5-10.1) mg/dL Magnesium (1.8-2.4) mg/dL Total Bilirubin 0.3 (0.2-1.0) mg/dL AST 24 (15-37) U/L ALT 24 (12-78) U/L Alkaline Phosphatase 57 (46-116) U/L Troponin I (0.000-0.056) ng/mL NT-Pro-B Natriuret Pep (5-125) pg/mL Total Protein 6.2 L (6.4-8.2) g/dL Albumin 3.0 L (3.4-5.0) g/dL Globulin 3.2 (2.3-3.5) g/dL Albumin/Globulin Ratio 0.9 L (1.2-2.2) TSH, Ultra Sensitive (0.358-3.740) uIU/mL Blood Type A POSITIVE Gel Antibody Screen Negative Crossmatch See Detail 12/02/16 12/02/16 12/02/16 Range/Units 15:34 15:34 15:34 WBC (4.5-11.0) K/uL RBC (4.30-5.90) M/uL Hgb (12.0-15.0) g/dL Hct (40.0-54.0) % MCV (80-98) fL MCH (27-31) pg MCHC (32-36) % Plt Count (150-400) K/uL Neut % (Auto) (36-66) % Lymph % (Auto) (24-44) % [place] % (Auto) (2-6) % Eos % (Auto) (2-4) % Baso % (Auto) (0-1) % Sodium (140-148) mmol/L Potassium (3.6-5.2) mmol/L Chloride (100-108) mmol/L Carbon Dioxide (21-32) mmol/L Anion Gap (5.0-14.0) mmol/L BUN (7-18) mg/dL Creatinine (0.8-1.3) mg/dL Est Cr Clr Drug Dosing mL/min Estimated GFR (MDRD) (>60) Glucose (74-106) mg/dL Calcium (8.5-10.1) mg/dL Magnesium (1.8-2.4) mg/dL Total Bilirubin (0.2-1.0) mg/dL AST (15-37) U/L ALT (12-78) U/L Alkaline Phosphatase (46-116) U/L Troponin I 0.077 H* (0.000-0.056) ng/mL NT-Pro-B Natriuret Pep 1479 H (5-125) pg/mL Total Protein (6.4-8.2) g/dL Albumin (3.4-5.0) g/dL Globulin (2.3-3.5) g/dL Albumin/Globulin Ratio (1.2-2.2) TSH, Ultra Sensitive 1.754 (0.358-3.740) uIU/mL Blood Type Gel Antibody Screen Crossmatch 12/02/16 Range/Units 15:34 WBC (4.5-11.0) K/uL RBC (4.30-5.90) M/uL Hgb (12.0-15.0) g/dL Hct (40.0-54.0) % MCV (80-98) fL MCH (27-31) pg MCHC (32-36) % Plt Count (150-400) K/uL Neut % (Auto) (36-66) % Lymph % (Auto) (24-44) % [place] % (Auto) (2-6) % Eos % (Auto) (2-4) % Baso % (Auto) (0-1) % Sodium (140-148) mmol/L Potassium (3.6-5.2) mmol/L Chloride (100-108) mmol/L Carbon Dioxide (21-32) mmol/L Anion Gap (5.0-14.0) mmol/L BUN (7-18) mg/dL Creatinine (0.8-1.3) mg/dL Est Cr Clr Drug Dosing mL/min Estimated GFR (MDRD) (>60) Glucose (74-106) mg/dL Calcium (8.5-10.1) mg/dL Magnesium 1.5 L (1.8-2.4) mg/dL Total Bilirubin (0.2-1.0) mg/dL AST (15-37) U/L ALT (12-78) U/L Alkaline Phosphatase (46-116) U/L Troponin I (0.000-0.056) ng/mL NT-Pro-B Natriuret Pep (5-125) pg/mL Total Protein (6.4-8.2) g/dL Albumin (3.4-5.0) g/dL Globulin (2.3-3.5) g/dL Albumin/Globulin Ratio (1.2-2.2) TSH, Ultra Sensitive (0.358-3.740) uIU/mL Blood Type Gel Antibody Screen Crossmatch Lab work discussed with Dr. Tyler, [facility] contacted for transfer. Return phone call pending. [facility] returned telephone call, beds are full, send patient to nearest facility. Contacted [facility] facility, patient is too critical for them to accept. Patient accepted by [facility] per Dr. Boswell. Patient will go by ambulance. Meds: Medications Generic Name Dose Route Start Last Admin Trade Name Freq PRN Reason Stop Dose Admin Lactated Ringer's 1,000 mls @ 125 mls/hr 12/02/16 16:30 12/02/16 16:46 Ringers, Lactated IV 125 mls/hr ASDIRECTED DONAL Administration Potassium Chloride 20 meq/ 112 mls @ 56 mls/hr 12/02/16 16:30 12/02/16 16:47 Lidocaine HCl 2 ml/ Sodium IV 12/02/16 18:29 56 mls/hr Chloride ONETIME ONE Administration Sodium Chloride 10 ml 12/02/16 16:17 12/02/16 17:02 Saline Flush FLUSH 10 ml ASDIRECTED PRN Administration Keep Vein Open Discontinued Medications Generic Name Dose Route Start Last Admin Trade Name Freq PRN Reason Stop Dose Admin Furosemide 10 mg 12/02/16 18:08 Lasix IVPUSH 12/02/16 18:09 ONETIME ONE RBC's infusing without difficulty, hemodynamic status remains stable. Dr. Tyler notified of plan, she is in agreement. - Radiology Interpretation Free Text/Narrative:: Chest x-ray wet read, no acute findings, radiologist read pending. Departure - Departure Time of Disposition: 18:00 Disposition: DC/Tfer to Acute Hospital 02 Condition: Poor Clinical Impression: GI bleed, CHF (congestive heart failure), Elevated troponin, Edema of lower extremity, Iron deficiency anemia due to chronic blood loss, Hypokalemia - Discharge Information Referrals: PCP,None [Primary Care Provider] - Forms: ED Department Discharge Additional Instructions: Patient transferred to [facility] per Dr. Boswell. RBC's infusing without difficulty. - My Orders Last 24 Hours: My Active Orders 12/02/16 15:18 EKG Documentation Completion [RC] ASDIRECTED Chest 2V [CR] Stat EKG 12 Lead [EK] Routine 12/02/16 15:30 RED BLOOD CELLS LP [BBK] Stat TYPE AND SCREEN [BBK] Stat 12/02/16 16:17 Sodium Chloride 0.9% [Saline Flush] 10 ml FLUSH ASDIRECTED PRN Saline Lock Insert [OM.PC] Routine 12/02/16 16:30 Lactated Ringers [Ringers, Lactated] 1,000 ml IV ASDIRECTED Potassium Chloride 20 meq Lidocaine 1% [Xylocaine 1%] 2 ml Sodium Chloride 0.9 % [Normal Saline] 100 ml IV ONETIME - Assessment/Plan Last 24 Hours: My Active Orders 12/02/16 15:18 EKG Documentation Completion [RC] ASDIRECTED Chest 2V [CR] Stat EKG 12 Lead [EK] Routine 12/02/16 15:30 RED BLOOD CELLS LP [BBK] Stat TYPE AND SCREEN [BBK] Stat 12/02/16 16:17 Sodium Chloride 0.9% [Saline Flush] 10 ml FLUSH ASDIRECTED PRN Saline Lock Insert [OM.PC] Routine 12/02/16 16:30 Lactated Ringers [Ringers, Lactated] 1,000 ml IV ASDIRECTED Potassium Chloride 20 meq Lidocaine 1% [Xylocaine 1%] 2 ml Sodium Chloride 0.9 % [Normal Saline] 100 ml IV ONETIME Assessment:: Elevated troponin Congestive heart failure Edema of bilateral lower extremities Iron deficiency anemia due to chronic blood loss Hypokalemia Plan: Patient transferred to [facility] per Dr. Boswell. RBC's infusing without difficulty. Potassium administered. Furosemide 10 mg IV
[2016-12-02] MEDS ORDERED: Sodium Chloride 0.9% 10 ML Syringe FLUSH PRN (16:17)
[2016-12-02] MEDS ORDERED: Potassium Chloride 20 MEQ in Premix Bag 1 BAG IV ONE (16:24)
[2016-12-02] MEDS ORDERED: Lidocaine 1% 20 ML MDV INJECT ONE (16:25)
[2016-12-02] MEDS ORDERED: Potassium Chloride 20 MEQ, Lidocaine 1% 2 ML in Sodium Chloride 0.9% 100 ML IV ONE (16:30)
[2016-12-02] MEDS ORDERED: NS + KCl 20mEq/L 1,000 ML IV SCH (16:30)
[2016-12-02] MEDS ORDERED: Lactated Ringers 1,000 ML IV SCH (16:30)
[2016-12-02] MEDS ORDERED: Furosemide 40 MG/4 ML VIAL IVPUSH ONE (18:08)
[2016-12-02 18:28] VITALS: BP 149/81
--- NOTE | 2016-12-05 09:57 | CR ---
Portable chest There is hyperinflation consistent with COPD. The heart and vascular structures are within normal flores its. There are no infiltrates or effusions. Impression: 1. COPD. 2. No acute findings.
== END 2016-12-02 18:45 ==
LOC: JP.ED 14:35
DX: I11.0 Hypertensive heart disease with heart failure (principal); I50.9 Heart failure, unspecified; K92.2 Gastrointestinal hemorrhage, unspecified; M19.90 Unspecified osteoarthritis, unspecified site; E78.00 Pure hypercholesterolemia, unspecified; F17.210 Nicotine dependence, cigarettes, uncomplicated; Z88.8 Allergy status to other drugs, medicaments and biological substances; Z79.899 Other long term (current) drug therapy
CPT/HCPCS: 36415; 36430; 71020; 80053; 83735; 83880; 84443; 84484; 85025; 86850; 86900; 86901; 86920; 86922; 93005; 96365; 96366; 96375; 99285; J1940; J3480; J7030; J7050; J7120; P9016; 93010; 99284

== ENCOUNTER 2017-07-06 07:48 | Day surgery (SDC) | payer OTHER ==
[~2017-07-06 07:48] MED LIST: Midazolam 1 MG/ML 2 ML SDV ONE; Propofol 200 MG/20 ML SDV ONE; fentaNYL 100 MCG/2 ML SDV ONE
[2017-07-06] MEDS ORDERED: Sodium Chloride 0.9% 1,000 ML IV SCH (08:30)
[2017-07-06] MEDS ORDERED: Atenolol 50 MG Tab PO ONE (08:45)
[2017-07-06] MEDS ORDERED: Losartan 50 MG Tab PO ONE (08:45)
[2017-07-06] MEDS ORDERED: Propofol 200 MG/20 ML SDV ONE (10:08)
[2017-07-06 11:11] VITALS: BP 166/91
--- NOTE | 2017-07-07 12:06 | OR ---
DATE OF PROCEDURE: 07/06/2017 PROCEDURES: 1. EGD. 2. Colonoscopy. FINDINGS: 1. Diverticulosis, mild. 2. Inflammation at distal antrum consistent with healing gastric ulcer (biopsied using cold biopsy forceps for H. pylori). 3. Inflammation consistent with reflux disease versus Quispe's esophagus (biopsied in all 4 quadrants). 4. Transverse colon polyp, approximately 5 mm, completely removed using cold biopsy forceps. 5. Rectal polyp, approximately 5 mm, completely removed using cold biopsy forceps. PREOPERATIVE DIAGNOSES: Abdominal pain and history of gastric ulcer. POSTOPERATIVE DIAGNOSES: Abdominal pain and history of gastric ulcer. RISKS: Risks, benefits, alternatives, and limitations including, but not limited to infection, bleeding, and perforation were explained to the patient, and they wished to proceed. PROCEDURE IN DETAIL: The patient was placed in left lateral decubitus position. The EGD scope was introduced and advanced atraumatically to the second part of the duodenum. No duodenal ulcer or abnormality. In the antrum itself, there was an area consistent with a healing ulcer. This was not actively bleeding and would be approximately 3 to 4 mm in size. This was biopsied in proximity for H. pylori. On retroflex, there was no hiatal hernia. Inflammation at the GE junction was consistent with reflux disease. This was biopsied approximately x6 in 4 quadrants. The remainder of the esophagus was normal. A digital rectal exam was performed next. The scope was introduced and advanced atraumatically to the ileocecal valve. The scope was brought back through the ascending, transverse, descending colon, and retroflexed. The aforementioned polyps were identified and completely removed. Diverticulosis would be described as mild and no abnormalities on retroflexion. The patient tolerated the procedure well. Judah Dillard MD /[id number]
== END 2017-07-06 11:33 | disposition home or self-care (01) ==
LOC: JP.SDS 07:48
PROVIDERS: ATTEND Surgery
DX: K29.50 Unspecified chronic gastritis without bleeding (principal); K20.9 Esophagitis, unspecified; Z12.11 Encounter for screening for malignant neoplasm of colon; K62.1 Rectal polyp; K63.5 Polyp of colon; K57.30 Diverticulosis of large intestine without perforation or abscess without bleeding; I10 Essential (primary) hypertension; F17.200 Nicotine dependence, unspecified, uncomplicated; E78.5 Hyperlipidemia, unspecified; Z87.11 Personal history of peptic ulcer disease; Z88.8 Allergy status to other drugs, medicaments and biological substances
CPT/HCPCS: 43239; 45380; A9270; J2250; J2704; J3010; J7040

== ENCOUNTER 2023-05-19 11:23 | Emergency (ER) | payer OTHER, MEDICARE ==
[2023-05-19 12:18] LABS: BASOPHILS ABSOLUTE AUTO 0.08 K/uL (0.00-0.10); BASOPHILS PERCENT AUTO 0.4 % (0.1-1.3); EOSINOPHILS ABSOLUTE AUTO 0.11 K/uL (0.00-0.40); EOSINOPHILS PERCENT AUTO 0.5 % (0.0-5.4); HEMATOCRIT 32.6 % (38.4-49.7); HEMOGLOBIN 11.7 g/dL (12.9-16.9); IMMATURE GRAN ABSOLUTE AUTO 0.22 K/uL (0.00-0.23); LYMPHOCYTES ABSOLUTE AUTO 1.89 K/uL (0.8-3.3); LYMPHOCYTES PERCENT AUTO 8.9 % (11.4-47.7); MEAN CORPUSCULAR HEMOGLOBIN 33.9 pg (31.6-35.5); MEAN CORPUSCULAR HGB CONC 35.9 g/dL (31.6-35.5); MEAN CORPUSCULAR VOLUME 94.5 fL (81.4-99.0); MONOCYTES ABSOLUTE AUTO 1.08 K/uL (0.20-0.90); MONOCYTES PERCENT AUTO 5.1 % (3.3-12.6); NEUTROPHILS ABSOLUTE AUTO 17.78 K/uL (1.0-7.6); NEUTROPHILS PERCENT AUTO 84.1 % (40.0-78.1); PLATELET COUNT,PLT 569 K/uL (130-375); RED BLOOD CELL COUNT 3.45 M/uL (4.14-5.76); WHITE BLOOD CELL COUNT,WBC 21.2 K/uL (3.2-11.0)
[2023-05-19] MEDS: Sodium Chloride 0.9% 1,000 ML IV ONE ×2 (12:24→13:42)
[2023-05-19 12:39] LABS: A/G RATIO 0.7 (1.2-2.2); ALANINE AMINOTRANSFERASE,ALT 13 U/L (12-78); ALBUMIN 2.8 g/dL (3.4-5.0); ALKALINE PHOSPHATASE 49 U/L (46-116); ASPARTATE AMNIOTRANSFERASE,AST 14 U/L (15-37); BILIRUBIN TOTAL 0.2 mg/dL (0.2-1.0); BLOOD UREA NITROGEN,BUN 45 mg/dL (7-18); CALCIUM 9.2 mg/dL (8.5-10.1); CARBON DIOXIDE,CO2 26 mmol/L (21-32); CHLORIDE,CL 95 mmol/L (100-108); ESTIMATED GFR 80 mL/min (>60); GLUCOSE RANDOM 124 mg/dL (74-106); POTASSIUM,K 3.8 mmol/L (3.6-5.2); PROTEIN TOTAL,TP 6.7 g/dL (6.4-8.2); SODIUM,NA 133 mmol/L (140-148)
[2023-05-19 12:40] LABS: ANION GAP 15.8 mmol/L (5.0-14.0)
[2023-05-19 13:54] VITALS: BP 138/71; PULSE 90
== END 2023-05-19 14:58 | disposition home or self-care (01) ==
LOC: JP.ED 11:23
DX: R41.840 Attention and concentration deficit (principal); I10 Essential (primary) hypertension; F17.210 Nicotine dependence, cigarettes, uncomplicated; Z88.8 Allergy status to other drugs, medicaments and biological substances; Z79.899 Other long term (current) drug therapy
CPT/HCPCS: 36415; 80053; 85025; 96360; 96361; 99284; J7030

== ENCOUNTER 2023-05-20 10:17 | Emergency (ER) | payer MEDICARE, OTHER ==
[2023-05-20 10:40] VITALS: BP 159/93; PULSE 116
[2023-05-20 11:09] LABS: BASOPHILS ABSOLUTE AUTO 0.08 K/uL (0.00-0.10); BASOPHILS PERCENT AUTO 0.4 % (0.1-1.3); EOSINOPHILS PERCENT AUTO 1.1 % (0.0-5.4); HEMATOCRIT 28.7 % (38.4-49.7); HEMOGLOBIN 10.3 g/dL (12.9-16.9); IMMATURE GRAN ABSOLUTE AUTO 0.16 K/uL (0.00-0.23); IMMATURE GRAN PERCENT AUTO 0.9 % (0.0-0.7); LYMPHOCYTES ABSOLUTE AUTO 2.02 K/uL (0.8-3.3); MEAN CORPUSCULAR HEMOGLOBIN 34.1 pg (31.6-35.5); MEAN CORPUSCULAR HGB CONC 35.9 g/dL (31.6-35.5); MONOCYTES ABSOLUTE AUTO 1.02 K/uL (0.20-0.90); MONOCYTES PERCENT AUTO 5.6 % (3.3-12.6); NEUTROPHILS ABSOLUTE AUTO 14.87 K/uL (1.0-7.6); PLATELET COUNT,PLT 546 K/uL (130-375); RED BLOOD CELL COUNT 3.02 M/uL (4.14-5.76); WHITE BLOOD CELL COUNT,WBC 18.4 K/uL (3.2-11.0)
== END 2023-05-20 12:35 | disposition left against medical advice (07) ==
LOC: JP.ED 10:17
DX: K92.1 Melena (principal); I10 Essential (primary) hypertension; K21.9 Gastro-esophageal reflux disease without esophagitis; F17.210 Nicotine dependence, cigarettes, uncomplicated; Z86.19 Personal history of other infectious and parasitic diseases; Z90.89 Acquired absence of other organs; Z79.899 Other long term (current) drug therapy
CPT/HCPCS: 36415; 85025; 99284